=== PATIENT | female | born 1980 | race Caucasian/White ===

== ENCOUNTER 2019-10-13 23:09 | Emergency (ER) | payer OTHER ==
[~2019-10-13] VITALS: Ht 177.8 cm; Wt 117.9 kg
[2019-10-13] MEDS ORDERED: ONDANSETRON HCL/PF 4 MG/2 ML VIAL ONE (23:44)
[2019-10-13 23:59] LABS: BASOPHILS # (AUTO) 0.1 /CMM (0.0-0.2); BASOPHILS % (AUTO) 1.2 % (0.0-2.0); EOSINOPHILS % (AUTO) 2.2 % (0.0-6.0); HEMATOCRIT 38 % (33-45); HEMOGLOBIN 12.7 g/dL (11.5-14.8); LYMPHOCYTES % (AUTO) 22.9 % (20.0-44.0); MEAN CORPUSCULAR HGB CONC 33 g/dl (31.0-36.0); MEAN CORPUSCULAR VOLUME 92 fL (82-100); MONOCYTES # (AUTO) 0.5 /CMM (0.1-1.30); MONOCYTES % (AUTO) 11.5 % (2.0-12.0); NEUTROPHILS # (AUTO) 2.7 /CMM (1.8-8.9); NEUTROPHILS % (AUTO) 62.2 % (43.0-81.0); PLATELET COUNT (AUTO) 73 /CMM (150-450); RED BLOOD CELL COUNT(AUTO) 4.14 MIL/uL (4.0-5.2); WHITE BLOOD COUNT (AUTO) 4.4 K/uL (4.3-11.0)
[2019-10-14] MEDS ORDERED: ONDANSETRON HCL/PF 4 MG/2 ML VIAL IVP ONE
--- NOTE | 2019-10-14 00:01 | NUR ---
CXR IN PROGRESS AT THE BEDSIDE.
[2019-10-14 00:11] LABS: CALCIUM, SERUM 8.4 mg/dL (8.5-10.1); CARBON DIOXIDE 19 mmol/L (21-32); CHLORIDE 108 mmol/L (98-107); CREATININE 0.9 mg/dL (0.6-1.3); GLUCOSE 102 mg/dL (74-106); POTASSIUM 3.6 mmol/L (3.5-5.1); SODIUM SERUM 139 mmol/L (136-145); UREA NITROGEN, BLOOD 16 mg/dL (7-18)
[2019-10-14 00:23] LABS: B-TYPE NATRIURETIC PEPTIDE 26 PG/ML (0-125)
[2019-10-14] MEDS ORDERED: NITROGLYCERIN 0.4 MG/TAB BOTTLE ONE (00:47)
[2019-10-14] MEDS ORDERED: ACETAMINOPHEN 325 MG TABLET ONE (00:47)
[2019-10-14 00:58] LABS: EOSINOPHILS % (MANUAL) 3 % (0-4); LYMPHOCYTES % (MANUAL) 17 % (16-48); MONOCYTES % (MANUAL) 7 % (0-11.0); NEUTROPHILS % (MANUAL) 73 (42-76)
[2019-10-14] MEDS ORDERED: NITROGLYCERIN 0.4 MG/TAB BOTTLE SL ONE (01:00)
[2019-10-14] MEDS ORDERED: ACETAMINOPHEN 325 MG TABLET PO ONE (01:00)
[2019-10-14] MEDS ORDERED: ONDANSETRON HCL/PF 4 MG/2 ML VIAL ONE (01:09)
[2019-10-14] MEDS ORDERED: HYDROCODONE/APAP 5/325MG 1 EACH TABLET ONE (01:10)
[2019-10-14 01:22] LABS: APPEARANCE,URINE Clear (CLEAR); BILIRUBIN,URINE Negative (NEGATIVE); BLOOD, URINE Moderate Ery/uL (NEGATIVE); COLOR,URINE Yellow (YELLOW); KETONES,URINE Negative (NEGATIVE); LEUKOCYTE ESTERASE ,URINE Negative (NEGATIVE); NITRITE, URINE Negative (NEGATIVE); PROTEIN,URINE Negative (NEGATIVE); UGLUCOSE Negative (NEGATIVE); UROBILINOGEN,URINE 0.2 EU/dL (0.2)
[2019-10-14] MEDS ORDERED: HYDROCODONE/APAP 5/325MG 1 EACH TABLET PO ONE (01:30)
[2019-10-14] MEDS ORDERED: ONDANSETRON HCL/PF 4 MG/2 ML VIAL IV ONE (01:30)
[2019-10-14] MEDS ORDERED: ONDANSETRON 4 MG TAB.RAPDIS SL ONE (01:30)
--- NOTE | 2019-10-14 01:31 | NUR ---
IV removed. Catheter intact and site benign. Pressure and 4x4 applied to site. No bleeding noted. Patient discharged to home in stable condition. Written and verbal after care instructions given. Patient verbalizes understanding of instruction. PT AMBULATED OUT WITH A STEADY GAIT. PT REC'D A CUP OF ICE CHIPS FOR THE UBER RIDE HOME. PT IS TAKING UBER HOME. VSS.
[2019-10-14 01:32] VITALS: BP 145/77
[2019-10-14 03:35] LABS: BACTERIA,URINE Few /HPF (None Seen); RBC,URINE 0-2 /HPF (0-2); SQUAMOUS EPITHELIAL CELL,UR Few /HPF (None Seen)
== END 2019-10-14 01:33 | disposition home or self-care (01) ==
LOC: ER 23:18
DX: R07.89 Other chest pain (principal); I25.2 Old myocardial infarction; I50.9 Heart failure, unspecified; F17.200 Nicotine dependence, unspecified, uncomplicated; Z86.19 Personal history of other infectious and parasitic diseases; Z88.6 Allergy status to analgesic agent; Z91.040 Latex allergy status; Z88.8 Allergy status to other drugs, medicaments and biological substances
CPT/HCPCS: 36415; 71045; 80048; 81001; 83880; 84484; 84703; 85025; 85730; 93005; 96374; 96376; 99284; J2405 ×2; 81000-TC

== ENCOUNTER 2020-01-02 03:12 | Emergency (ER) | payer OTHER ==
[~2020-01-02] VITALS: Ht 165.1 cm; Wt 99.8 kg
[2020-01-02] MEDS ORDERED: MORPHINE SULFATE INJ 2 MG/ML DISP.SYRIN IV ONE ×2 (04:00→07:00)
[2020-01-02] MEDS ORDERED: ONDANSETRON HCL/PF 4 MG/2 ML VIAL IVP ONE (04:00)
[2020-01-02] MEDS ORDERED: MORPHINE SULFATE INJ 4 MG/ML DISP.SYRIN ONE ×2 (04:06→06:45)
[2020-01-02] MEDS ORDERED: ONDANSETRON HCL/PF 4 MG/2 ML VIAL ONE (04:06)
--- NOTE | 2020-01-02 04:13 | NUR ---
PATIENT CAME TO ER BED 6 C/O LEFT LOWER BACK PAIN. PATIENT STATES THAT SHE LIFTED A HEAVY OBJECT OF ABOUT 110LBS AND IT FELL ON HER. PATIENT STATES THAT SHE HAS LOWER BACK PAIN, LOSS OF BLADDER CONTROL, AND NAUSEA. PATIENT STATES THAT THIS HAD OCCURRED AROUND 0130 OF TODAY. AAOX4. NO SOB. BREATHING EVENLY AND UNLABORED. CONNECTED TO MONITOR.
--- NOTE | 2020-01-02 04:16 | NUR ---
BLOOD DRAWN AND SENT TO LAB.
--- NOTE | 2020-01-02 04:41 | NUR ---
URINE COLLECTED AND SENT TO LAB
[2020-01-02 04:42] LABS: CALCIUM, SERUM 8.3 mg/dL (8.5-10.1); CREATININE 0.8 mg/dL (0.6-1.3)
[2020-01-02 04:43] LABS: APPEARANCE,URINE Clear (CLEAR); BILIRUBIN,URINE Negative (NEGATIVE); BLOOD, URINE Trace-intact Ery/uL (NEGATIVE); COLOR,URINE Yellow (YELLOW); KETONES,URINE Negative (NEGATIVE); LEUKOCYTE ESTERASE ,URINE Negative (NEGATIVE); NITRITE, URINE Negative (NEGATIVE); PH,URINE 6.5 (5.0-8.0); PROTEIN,URINE Negative (NEGATIVE); UGLUCOSE Negative (NEGATIVE); UROBILINOGEN,URINE 0.2 EU/dL (0.2)
[2020-01-02 05:01] LABS: ALBUMIN 3.2 g/dL (3.4-5.0); BILIRUBIN,DIRECT 0.3 mg/dL (0.0-0.2); TOTAL PROTEIN, SERUM 7.9 g/dL (6.4-8.2)
[2020-01-02 05:15] LABS: HEMATOCRIT 36 % (33-45); RED BLOOD CELL COUNT(AUTO) 4.18 MIL/uL (4.0-5.2); WHITE BLOOD COUNT (AUTO) 4.3 K/uL (4.3-11.0)
[2020-01-02 05:16] LABS: BASOPHILS # (AUTO) 0.1 /CMM (0.0-0.2); BASOPHILS % (AUTO) 1.2 % (0.0-2.0); EOSINOPHILS % (AUTO) 5.2 % (0.0-6.0); LYMPHOCYTES # (AUTO) 0.9 /CMM (0.8-4.8); LYMPHOCYTES % (AUTO) 22.1 % (20.0-44.0); MEAN CORPUSCULAR HGB CONC 33 g/dl (31.0-36.0); MEAN CORPUSCULAR VOLUME 87 fL (82-100); MONOCYTES # (AUTO) 0.3 /CMM (0.1-1.30); MONOCYTES % (AUTO) 7.1 % (2.0-12.0); NEUTROPHILS # (AUTO) 2.7 /CMM (1.8-8.9); NEUTROPHILS % (AUTO) 64.4 % (43.0-81.0); PLATELET COUNT (AUTO) 84 /CMM (150-450)
[2020-01-02 05:26] LABS: BACTERIA,URINE None seen /HPF (None Seen); RBC,URINE 0-2 /HPF (0-2); SQUAMOUS EPITHELIAL CELL,UR Few /HPF (None Seen); WBC,URINE 0-2 /HPF (0-3)
[2020-01-02] MEDS ORDERED: HALOPERIDOL LACTATE INJ 5 MG/ML VIAL ONE (05:50)
[2020-01-02] MEDS ORDERED: HALOPERIDOL LACTATE INJ 5 MG/ML VIAL IM ONE (06:00)
[2020-01-02 06:01] LABS: EOSINOPHILS % (MANUAL) 6 % (0-4); LYMPHOCYTES % (MANUAL) 23 % (16-48); MONOCYTES % (MANUAL) 8 % (0-11.0); NEUTROPHILS % (MANUAL) 63 (42-76)
--- NOTE | 2020-01-02 06:56 | NUR ---
IV removed. Catheter intact and site benign. Pressure and 4x4 applied to site. No bleeding noted.
--- NOTE | 2020-01-02 06:58 | NUR ---
Patient is ambulatory with a steady gait.
--- NOTE | 2020-01-02 06:58 | NUR ---
Patient discharged to home in stable condition. Written and verbal after care instructions given. Patient verbalizes understanding of instruction.
[2020-01-02 06:59] VITALS: BP 122/71
--- NOTE | 2020-01-02 06:59 | NUR ---
Patient called Micaela to drive her home.
== END 2020-01-02 06:59 | disposition home or self-care (01) ==
LOC: ER 03:15
DX: M54.5 Low back pain (principal); G89.29 Other chronic pain; I25.2 Old myocardial infarction; I50.9 Heart failure, unspecified; Z86.19 Personal history of other infectious and parasitic diseases; Z88.8 Allergy status to other drugs, medicaments and biological substances; Z91.040 Latex allergy status
CPT/HCPCS: 36415; 72131; 80048; 80076; 81001; 84703; 85025; 86140; 96372; 96374; 96375; 96376; 99284; J1630; J2270 ×2; J2405; 81000-TC

== ENCOUNTER 2020-01-20 01:01 | Emergency (ER) | payer OTHER ==
[~2020-01-20] VITALS: Ht 180.3 cm; Wt 95.7 kg
[2020-01-20 02:21] VITALS: BP 138/78
[2020-01-20] MEDS ORDERED: MORPHINE SULFATE INJ 2 MG/ML DISP.SYRIN ONE (02:52)
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
[2020-01-20] MEDS ORDERED: MORPHINE SULFATE INJ 2 MG/ML DISP.SYRIN IM ONE (03:00)
--- NOTE | 2020-01-20 03:22 | NUR ---
Patient discharged to home in stable condition. Written and verbal after care instructions given. Patient verbalizes understanding of instruction.
== END 2020-01-20 03:23 | disposition home or self-care (01) ==
LOC: ER 01:01
DX: S90.31XA Contusion of right foot, initial encounter (principal); S60.212A Contusion of left wrist, initial encounter; G89.29 Other chronic pain; I25.2 Old myocardial infarction; I50.9 Heart failure, unspecified; F17.200 Nicotine dependence, unspecified, uncomplicated; Z88.6 Allergy status to analgesic agent; Z88.8 Allergy status to other drugs, medicaments and biological substances; Z91.040 Latex allergy status; Y08.89XA Assault by other specified means, initial encounter; Y93.89 Activity, other specified; Y92.89 Other specified places as the place of occurrence of the external cause; Y99.8 Other external cause status
CPT/HCPCS: 96372; 99283; J2270

== ENCOUNTER 2020-03-09 15:16 | Emergency (ER) | payer OTHER ==
[~2020-03-09] VITALS: Ht 177.8 cm; Wt 104.3 kg
--- NOTE | 2020-03-09 16:37 | NUR ---
BIBS TO ER BED 3. AAOX4. NOT IN RESP DISTRESS, BREATHING EVEN AND UNLABORED. AMBULATORY. CAME IN FOR NECK PAIN AND SWELLING. PT REORTS PAIN STARTED LAST NIGHT. PAIN IS DESCRIBE TIGHTNESS. PT REPORTS PAIN AT THE BACK OF THE HEAD. WHEN LYING DOWN AND DIFFICULTY TO BREATH. PT ALSO COMPLAINTS THAT HER FACE IS SWOLEN THAN USUAL.MD WAS AT BEDSIDE FOR EVAL. ORDERS RECEIVED NOTED AND CARRIED OUT.
[2020-03-09] MEDS ORDERED: DEXAMETHASONE SOLN 5 MG/5 ML UDC ONE (16:57)
[2020-03-09 17:06] LABS: BASOPHILS % (AUTO) 1.1 % (0.0-2.0); EOSINOPHILS % (AUTO) 3.9 % (0.0-6.0); HEMATOCRIT 38 % (33-45); HEMOGLOBIN 12.5 g/dL (11.5-14.8); LYMPHOCYTES # (AUTO) 1.1 /CMM (0.8-4.8); LYMPHOCYTES % (AUTO) 27.1 % (20.0-44.0); MEAN CORPUSCULAR HGB CONC 33 g/dl (31.0-36.0); MEAN CORPUSCULAR VOLUME 88 fL (82-100); MONOCYTES # (AUTO) 0.3 /CMM (0.1-1.30); MONOCYTES % (AUTO) 7.4 % (2.0-12.0); NEUTROPHILS # (AUTO) 2.5 /CMM (1.8-8.9); NEUTROPHILS % (AUTO) 60.5 % (43.0-81.0); PLATELET COUNT (AUTO) 66 /CMM (150-450); WHITE BLOOD COUNT (AUTO) 4.1 K/uL (4.3-11.0)
[2020-03-09 17:09] LABS: CALCIUM, SERUM 8.3 mg/dL (8.5-10.1); POTASSIUM 4.1 mmol/L (3.5-5.1)
[2020-03-09] MEDS: DEXAMETHASONE SOLN 5 MG/5 ML UDC PO ONE (17:24)
[2020-03-09 18:11] LABS: THYROID STIMULATING HORMONE 165.373 uIU/mL (0.358-3.74)
[2020-03-09 18:20] LABS: BAND % (MANUAL) 2 % (0.0-5.0); EOSINOPHILS % (MANUAL) 2 % (0-4); LYMPHOCYTES % (MANUAL) 25 % (16-48); MONOCYTES % (MANUAL) 4 % (0-11.0); NEUTROPHILS % (MANUAL) 67 (42-76)
--- NOTE | 2020-03-09 18:35 | NUR ---
US AT BEDSIDE
--- NOTE | 2020-03-09 19:31 | NUR ---
Patient discharged to home in stable condition. Written and verbal after care instructions given. Patient verbalizes understanding of instruction. Pt ambulatory with a steady gait
[2020-03-09 19:32] VITALS: BP 130/78
[2020-03-11 08:08] LABS: T3, FREE 0.9 pg/mL (2.0-4.4)
== END 2020-03-09 19:33 | disposition home or self-care (01) ==
LOC: ER 15:19
DX: E01.0 Iodine-deficiency related diffuse (endemic) goiter (principal); I25.2 Old myocardial infarction; I50.9 Heart failure, unspecified; I42.9 Cardiomyopathy, unspecified; Z86.19 Personal history of other infectious and parasitic diseases; Z88.6 Allergy status to analgesic agent; Z91.040 Latex allergy status; Z88.8 Allergy status to other drugs, medicaments and biological substances; Z88.9 Allergy status to unspecified drugs, medicaments and biological substances
CPT/HCPCS: 36415; 70490; 76536; 80048; 84439; 84443; 84481; 85025; 86376; 99285; J8540

== ENCOUNTER 2020-03-18 03:39 | Emergency (ER) | payer OTHER ==
[~2020-03-18] VITALS: Ht 177.8 cm; Wt 104.3 kg
[2020-03-18] MEDS ORDERED: IV NS 0.9% 1,000 ML BAG IV ONE (04:00)
--- NOTE | 2020-03-18 04:00 | NUR ---
PT CAME IN FOR POSSIBLE REACTION TO SYNTHROID, SYNCOPAL EPISODE, SWELLING ON LT LEG +REDNESS +RASH. PT AAOX4, VSS, RESPIRATIONS EVEN AND UNLABORED ON RA W/ NAD NOTED. PT CONNECTED TO THE PEDIATRIC PSYCHIATRIST AND POX
--- NOTE | 2020-03-18 04:18 | NUR ---
EKG AT BEDSIDE
[2020-03-18 04:23] LABS: BASOPHILS # (AUTO) 0.1 /CMM (0.0-0.2); BASOPHILS % (AUTO) 1.4 % (0.0-2.0); EOSINOPHILS % (AUTO) 3.7 % (0.0-6.0); HEMATOCRIT 32 % (33-45); HEMOGLOBIN 10.8 g/dL (11.5-14.8); LYMPHOCYTES # (AUTO) 1.1 /CMM (0.8-4.8); LYMPHOCYTES % (AUTO) 25.1 % (20.0-44.0); MEAN CORPUSCULAR HGB CONC 34 g/dl (31.0-36.0); MEAN CORPUSCULAR VOLUME 89 fL (82-100); MONOCYTES # (AUTO) 0.5 /CMM (0.1-1.30); MONOCYTES % (AUTO) 12.5 % (2.0-12.0); NEUTROPHILS # (AUTO) 2.5 /CMM (1.8-8.9); NEUTROPHILS % (AUTO) 57.3 % (43.0-81.0); PLATELET COUNT (AUTO) 71 /CMM (150-450); RED BLOOD CELL COUNT(AUTO) 3.63 MIL/uL (4.0-5.2); WHITE BLOOD COUNT (AUTO) 4.4 K/uL (4.3-11.0)
[2020-03-18 04:25] LABS: CALCIUM, SERUM 9.7 mg/dL (8.5-10.1); CREATININE 0.9 mg/dL (0.6-1.3); POTASSIUM 3.7 mmol/L (3.5-5.1)
[2020-03-18 04:54] LABS: EOSINOPHILS % (MANUAL) 1 % (0-4); LYMPHOCYTES % (MANUAL) 21 % (16-48); MONOCYTES % (MANUAL) 8 % (0-11.0); NEUTROPHILS % (MANUAL) 70 (42-76)
--- NOTE | 2020-03-18 04:57 | NUR ---
ULTRASOUND AT BEDSIDE IN PROGRESS
[2020-03-18] MEDS ORDERED: MORPHINE SULFATE INJ 4 MG/ML DISP.SYRIN ONE (05:49)
[2020-03-18] MEDS ORDERED: MORPHINE SULFATE INJ 2 MG/ML DISP.SYRIN IV ONE ×2 (06:00)
[2020-03-18 06:21] VITALS: BP 124/78
--- NOTE | 2020-03-18 06:21 | NUR ---
Patient discharged to home in stable condition. Written and verbal after care instructions given. Patient verbalizes understanding of instruction.IV removed. Catheter intact and site benign. Pressure and 4x4 applied to site. No bleeding noted.
== END 2020-03-18 06:29 | disposition home or self-care (01) ==
LOC: ER 03:43
DX: R55 Syncope and collapse (principal); F17.210 Nicotine dependence, cigarettes, uncomplicated; R22.42 Localized swelling, mass and lump, left lower limb; I25.2 Old myocardial infarction; I50.9 Heart failure, unspecified; E03.9 Hypothyroidism, unspecified; Z88.6 Allergy status to analgesic agent; Z91.040 Latex allergy status; Z88.8 Allergy status to other drugs, medicaments and biological substances
CPT/HCPCS: 36415; 71045; 80048; 84484; 84703; 85025; 93005; 93971; 96361; 96374; 99285; 99406; J2270; J7030

== ENCOUNTER 2020-03-23 15:12 | Inpatient (IN) | payer OTHER ==
[~2020-03-23] VITALS: Ht 177.8 cm; Wt 145.1 kg
--- NOTE | 2020-03-23 16:32 | NUR ---
PT BIB RA WITH A C/O LLE REDNESS, EDEMA, & PAIN. PT IS AA&O X4. PT HAS MULT BRUISES ON BUE. PT WAS PLACED ON THE MONITOR AND CONTINUOUS PULSE OX. WILL CONTINUE TO MONITOR THE PT.
[2020-03-23] MEDS ORDERED: MORPHINE SULFATE INJ 2 MG/ML DISP.SYRIN IV ONE ×3 (17:30→21:00)
[2020-03-23] MEDS ORDERED: ONDANSETRON HCL/PF 4 MG/2 ML VIAL IVP ONE (17:30)
[2020-03-23] MEDS ORDERED: ONDANSETRON HCL/PF 4 MG/2 ML VIAL ONE (17:36)
[2020-03-23] MEDS ORDERED: MORPHINE SULFATE INJ 4 MG/ML DISP.SYRIN ONE ×3 (17:37→21:20)
--- NOTE | 2020-03-23 17:40 | NUR ---
US TECH IS AT THE BEDSIDE FOR DUPLEX.
--- NOTE | 2020-03-23 17:50 | NUR ---
IV STARTED AND BLOOD WAS DRAWN.
[2020-03-23 18:11] LABS: CALCIUM, SERUM 8.6 mg/dL (8.5-10.1); CREATININE 1.2 mg/dL (0.6-1.3); POTASSIUM 3.5 mmol/L (3.5-5.1)
[2020-03-23 18:21] LABS: BASOPHILS % (AUTO) 1.1 % (0.0-2.0); EOSINOPHILS % (AUTO) 1.8 % (0.0-6.0); HEMATOCRIT 30 % (33-45); HEMOGLOBIN 9.9 g/dL (11.5-14.8); LYMPHOCYTES # (AUTO) 0.7 /CMM (0.8-4.8); LYMPHOCYTES % (AUTO) 22.9 % (20.0-44.0); MEAN CORPUSCULAR HGB CONC 33 g/dl (31.0-36.0); MEAN CORPUSCULAR VOLUME 89 fL (82-100); MONOCYTES # (AUTO) 0.5 /CMM (0.1-1.30); MONOCYTES % (AUTO) 18.2 % (2.0-12.0); NEUTROPHILS # (AUTO) 1.7 /CMM (1.8-8.9); RED BLOOD CELL COUNT(AUTO) 3.36 MIL/uL (4.0-5.2)
[2020-03-23 18:25] LABS: PLATELET COUNT (AUTO) 48 /CMM (150-450)
[2020-03-23 18:28] LABS: ALBUMIN 3.4 g/dL (3.4-5.0); BILIRUBIN,TOTAL 1.4 mg/dL (0.2-1.0); TOTAL PROTEIN, SERUM 7.3 g/dL (6.4-8.2)
--- NOTE | 2020-03-23 18:30 | NUR ---
PT AMBULATED TO THE BATHROOM WITH A STEADY GAIT. PT IS STILL C/O PAIN. PT STATED THAT THE MEDICATION WAS NOT EFFECTIVE. TOO EARLY TO ASSESS. WILL RE-ASSESS PAIN SHORTLY.
--- NOTE | 2020-03-23 18:50 | NUR ---
PT STATED THAT THE PAIN MEDICATION WAS NOT EFFECTIVE. MD IS AWARE AND NEW ORDERS WERE GIVEN.
[2020-03-23] MEDS ORDERED: LEVO150T8 PO (18:55)
[2020-03-23] MEDS ORDERED: OXYC-454 PO (18:55)
[2020-03-23] MEDS ORDERED: AMOX1TAB15 PO (18:55)
[2020-03-23] MEDS ORDERED: FURO-145 PO (18:55)
[2020-03-23] MEDS ORDERED: CHOL100040 PO (18:56)
[2020-03-23] MEDS ORDERED: ASCO-352 PO (18:56)
--- NOTE | 2020-03-23 19:15 | NUR ---
PT APPEARS TO BE RESTING COMFORTABLY. PT IS ON THE PHONE WITH FAMILY.
[2020-03-23 19:25] LABS: APPEARANCE,URINE Clear (CLEAR); BILIRUBIN,URINE Negative (NEGATIVE); BLOOD, URINE Trace-lysed Ery/uL (NEGATIVE); COLOR,URINE Yellow (YELLOW); KETONES,URINE Negative (NEGATIVE); LEUKOCYTE ESTERASE ,URINE Negative (NEGATIVE); NITRITE, URINE Negative (NEGATIVE); PH,URINE 5.5 (5.0-8.0); PROTEIN,URINE Negative (NEGATIVE); UGLUCOSE Negative (NEGATIVE); UROBILINOGEN,URINE 0.2 EU/dL (0.2)
[2020-03-23 19:29] LABS: BACTERIA,URINE Few /HPF (None Seen); SQUAMOUS EPITHELIAL CELL,UR Few /HPF (None Seen); WBC,URINE NONE SEEN /HPF (0-3)
[2020-03-23 19:42] LABS: LYMPHOCYTES % (MANUAL) 22 % (16-48); MONOCYTES % (MANUAL) 17 % (0-11.0); NEUTROPHILS % (MANUAL) 61 (42-76)
--- NOTE | 2020-03-23 20:08 | NUR ---
Panel paged per Ravin SANABRIA
--- NOTE | 2020-03-23 20:25 | NUR ---
IS TALKING TO DR GODINEZ RE: PT ADMISSION.
--- NOTE | 2020-03-23 20:25 | NUR ---
CALL BACK IN 5 MINS FOR REPORT.
--- NOTE | 2020-03-23 20:44 | NUR ---
REPORT GIVEN TO ADARSH GOODWIN
[2020-03-23 22:00] VITALS: BP 136/87
[2020-03-23] MEDS ORDERED: VANCOMYCIN 1 GM in IV NS 0.9% 250 ML IV SCH (22:30)
--- NOTE | 2020-03-23 22:30 | NUR ---
MS RN RECEIVE PT VIA MICHEL FROM [facility] ADMIT TO MED SURG FLOOR PT A/OX 3 IN STABLE CONDITION, HEAD TO TOE ASSESSMENT IS DONE, PT NOTED BRUISES/DISCOLORATION IN HER BODY. PT C/O PAIN IN HER LEFT LOWER LEG, WILL CONT TO MONITOR
[2020-03-23] MEDS ORDERED: VANCOMYCIN 2 GM in IV NS 0.9% 500 ML IV ONE (23:00)
[2020-03-23] MEDS ORDERED: VANCOMYCIN 1 GM VIAL ONE ×2 (23:27→23:31)
[2020-03-23] MEDS: FUROSEMIDE 20 MG TABLET PO SCH (23:40)
--- NOTE | 2020-03-23 23:40 | NUR ---
WAYNE Patton DESK [employer]ERKS SUPERVISOR PATIENT WANTED BENADRYL FOR ITCH GEN BODY OBTAIN ORDERS OF BENADRYL 25 MG PO Q8HR PRN, FF UP PAIN REQUEST TO HAVE NORCO FOR HER BREAKTHROUGH PAIN PER DR. GODINEZ ITS EITHER NORCO OR MORPHINE NOT BOTH. READ BACK AND VERIFIED ORDERS NOTED AND CARRIED OUT
[2020-03-23] MEDS: MORPHINE SULFATE INJ 2 MG/ML DISP.SYRIN IV PRN (23:41)
[2020-03-24] MEDS: diphenhydrAMINE HCL 25 MG CAPSULE PO PRN ×2 (00:07→21:06)
[2020-03-24] MEDS: MORPHINE SULFATE INJ 2 MG/ML DISP.SYRIN IV PRN ×2 (03:42→08:08)
--- NOTE | 2020-03-24 05:33 | NUR ---
MS RN SLEPT WELL, MONITORED FOR PAIN, AFEBRILE. NO S/S OF DISTRESS. ALL NEEDS ATTENDED AND ANTICIPATED, KEPT CLEAN, DRY AND COMFORTABLE.SAFETY MEASURES AT ALL TIMES. WILL ENDORSE TO NEXT SHIFT.
[2020-03-24] MEDS ORDERED: FEE PK DOSING 1 MIN EA MC ONE (07:20)
[2020-03-24] MEDS ORDERED: LEVOTHYROXINE SODIUM 150 MCG TABLET PO SCH (07:30)
--- NOTE | 2020-03-24 07:30 | NUR ---
RN OPENING NOTES RECEIVED PATIENT RESTING IN BED. A/OX4. NOT IN ANY FORM OF DISTRESS. NO SOB. IV ACCESS INTACT AND PATENT. KEPT PATIENT SAFE AND COMFORTABLE. BED IN LOW/LOCKED POSITION. SIDERAILS UPX2, CALL LIGHT IN REACH. WILL CONT TO MONIOTR ACCORDINGLY
[2020-03-24 08:00] VITALS: BP 108/60
[2020-03-24] MEDS: LEVOTHYROXINE SODIUM 75 MCG TABLET PO SCH (08:12)
[2020-03-24] MEDS: FUROSEMIDE 20 MG TABLET PO SCH (08:12)
[2020-03-24] MEDS: CHOLECALCIFEROL 1,000 UNIT TABLET (VIT D3) PO SCH (08:12)
[2020-03-24] MEDS: ASCORBIC ACID 500 MG TABLET PO SCH (08:12)
[2020-03-24] MEDS: HYDROMORPHONE INJ 2 MG/ML DISP.SYRIN IV PRN ×3 (12:19→20:48)
[2020-03-24] MEDS: PANTOPRAZOLE 40 MG VIAL IV SCH (12:20)
[2020-03-24] MEDS: VANCOMYCIN 1.25 GM in IV D5W 250 ML IV SCH ×2 (12:20→23:07)
[2020-03-24 14:57] LABS: ALBUMIN 3.3 g/dL (3.4-5.0); BILIRUBIN,DIRECT 0.3 mg/dL (0.0-0.2); BILIRUBIN,TOTAL 1.2 mg/dL (0.2-1.0); TOTAL PROTEIN, SERUM 7.6 g/dL (6.4-8.2)
[2020-03-24 16:00] VITALS: BP 131/82
--- NOTE | 2020-03-24 19:30 | NUR ---
MS RN RECEIVE PT IN BED AWAKE AND NOT IN DISTRESS, NO COMPLAIN OF PAIN, SAFETY MEASURES AT ALL TIMES. WILL CONT TO MONITOR
--- NOTE | 2020-03-24 19:37 | NUR ---
RN CLOSING NOTES PATIENT IN STABLE CONDITION. ALL NEEDS ATTENDED AND PROVIDED. ALL DUE MEDS GIVEN ORDERED. ASSISTED PATIENT WITH ADLS. KEPT PATIENT SAFE AND COMFORTABLE. BED IN LOW/LOCKED POSITION. SIDERAILS UPX2, CALL LIGHT IN REACH. ENDORSED TO NIGHT RN FOR MARTY.
[2020-03-24 20:00] VITALS: BP 102/73
[2020-03-25] MEDS: HYDROMORPHONE INJ 2 MG/ML DISP.SYRIN IV PRN ×6 (00:49→23:19)
--- NOTE | 2020-03-25 05:28 | NUR ---
MS RN PT MONITORED FOR PAIN AND ACCORDINGLY, NEEDS ATTENDED AND ANTICIPATED, NO S/S OF DISTRESS, KEPT CLEAN, DRY AND COMFORTABLE. SAFETY MEASURES AT ALL TIMES. WILL ENDORSE TO NEXT SHIFT.
[2020-03-25 07:04] LABS: EOSINOPHILS % (AUTO) 2.2 % (0.0-6.0); HEMATOCRIT 32 % (33-45); HEMOGLOBIN 10.5 g/dL (11.5-14.8); LYMPHOCYTES # (AUTO) 0.6 /CMM (0.8-4.8); LYMPHOCYTES % (AUTO) 20.6 % (20.0-44.0); MEAN CORPUSCULAR HGB CONC 33 g/dl (31.0-36.0); MEAN CORPUSCULAR VOLUME 89 fL (82-100); MONOCYTES # (AUTO) 0.6 /CMM (0.1-1.30); MONOCYTES % (AUTO) 19.4 % (2.0-12.0); NEUTROPHILS # (AUTO) 1.6 /CMM (1.8-8.9); NEUTROPHILS % (AUTO) 56.8 % (43.0-81.0); PLATELET COUNT (AUTO) 52 /CMM (150-450); RED BLOOD CELL COUNT(AUTO) 3.54 MIL/uL (4.0-5.2); WHITE BLOOD COUNT (AUTO) 2.8 K/uL (4.3-11.0)
[2020-03-25 07:28] LABS: ALBUMIN 3.5 g/dL (3.4-5.0); BAND % (MANUAL) 3 % (0.0-5.0); BILIRUBIN,DIRECT 0.4 mg/dL (0.0-0.2); BILIRUBIN,TOTAL 1.6 mg/dL (0.2-1.0); CALCIUM, SERUM 8.3 mg/dL (8.5-10.1); CREATININE 0.9 mg/dL (0.6-1.3); LYMPHOCYTES % (MANUAL) 19 % (16-48); MONOCYTES % (MANUAL) 16 % (0-11.0); NEUTROPHILS % (MANUAL) 62 (42-76); POTASSIUM 3.8 mmol/L (3.5-5.1)
[2020-03-25 07:29] LABS: C-REACTIVE PROTEIN 0.9 mg/dL (0.0-0.9); THYROID STIMULATING HORMONE 3.7 uIU/mL (0.358-3.74)
[2020-03-25 08:00] VITALS: BP 131/107
--- NOTE | 2020-03-25 08:00 | NUR ---
RN NOTES RECEIVED PATIENT IN THE ROOM A/O X3, ROOM AIR, NO ACUTE RESPIRATORY DISTRESS, V/S STABLE, PATIENT TOLERATED BREAKFAST WELL, ADMINISTERED SCHEDULED MEDICATION, EDEMA ON LEFT LEG, REDNESS, ENCOURAGED TO KEEP ELEVATED USING PILLOWS, WAS COMPLAINING OD PAIN 8/10 PER PAIN SCALE. CALL LIGHT WITHIN TO REACH, CONTINUED MONITORING.
[2020-03-25 08:19] VITALS: BP 131/107
[2020-03-25 08:26] VITALS: BP 131/104
[2020-03-25] MEDS: FOLIC ACID 1 MG TABLET PO SCH (09:05)
[2020-03-25] MEDS: CHOLECALCIFEROL 1,000 UNIT TABLET (VIT D3) PO SCH (09:06)
[2020-03-25] MEDS: ASCORBIC ACID 500 MG TABLET PO SCH (09:06)
[2020-03-25] MEDS: LEVOTHYROXINE SODIUM 75 MCG TABLET PO SCH (09:06)
[2020-03-25] MEDS: FUROSEMIDE 20 MG TABLET PO SCH (09:06)
[2020-03-25] MEDS: PANTOPRAZOLE 40 MG VIAL IV SCH (09:06)
--- NOTE | 2020-03-25 09:12 | NUR ---
rn notes administered Dilaudid 2 mg/ml iv push for left leg pain 05/07 per patient request v/s taken bp 131/107, p-91, r-20. continued monitoring.
--- NOTE | 2020-03-25 14:45 | NUR ---
RN NOTES ADMINISTERED DILAUDID 2 MG/ML IV PUSH FOR LEFT FOOT PAIN 04/06 PER PATIENT REQUEST, V/S TAKEN BP-120/58, P-81, R-20, CONTINUED MONITORING.
[2020-03-25 16:50] VITALS: BP 113/64
[2020-03-25] MEDS: DOCUSATE SODIUM 100 MG CAPSULE PO SCH (17:24)
[2020-03-25] MEDS: MAGNESIUM HYDROXIDE 30 ML UDC PO PRN (18:10)
--- NOTE | 2020-03-25 18:10 | NUR ---
RN NOTES ADMINISTERED MILK OF MAGNESIA 30 ML PO PRN FOR CONSTIPATION, PATIENT STABLE, MEDICATION WERE ADMINISTERED FOR PAIN EFFECTIVE. EDUCATED PATIENT FOR OCCULT BLOOD STOOL SAMPLE. CALL LIGHT WITHIN TO REACH. ENDORSED ONCOMING NURSE FOLLOW PLAN OF CARE.
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
--- NOTE | 2020-03-25 19:14 | NUR ---
RN NOTES ADMINISTERED DILAUDID 2 MG/ML IV PUSH PER PATIENT REQUEST, PATIENT STABLE NO ACUTE RESPIRATORY DISTRESS, V/S WNL. ENDORSED ONCOMING NURSE FOLLOW PLAN OF CARE.
--- NOTE | 2020-03-25 20:15 | NUR ---
RECEIVED AWAKE AND ORIENTATED X4 SPEECH CLEAR LEFT LEG ELEVATED ON A PILLOW DEEP PINK IN COLOR
[2020-03-25 21:26] VITALS: BP 137/83
[2020-03-25 22:45] LABS: OCCULT BLOOD STOOL POSITIVE (NEGATIVE)
[2020-03-25] MEDS: VANCOMYCIN 1.5 GM in IV D5W 500ml IV SCH (23:20)
[2020-03-25] MEDS: diphenhydrAMINE HCL 25 MG CAPSULE PO PRN (23:29)
[2020-03-26] MEDS: HYDROMORPHONE INJ 2 MG/ML DISP.SYRIN IV PRN ×5 (04:21→23:04)
--- NOTE | 2020-03-26 04:54 | NUR ---
ENDING NOTES: ENJOYS TALKING ABOUT HER SON. SPEAKS OF GOING HOME. LEFT LEG DEEP PINK IN COLOR AND TENDER TO TOUCH. MEDICATED X3 THIS 12 HOUR SHIFT FOR LEFT LEG PAIN. NOTED MULTIPLE BODY BRUISING MD AWARE PLTS AT 53. AMBULATES TO THE BATHROOM STEADY ON HIS LEGS
[2020-03-26 07:36] LABS: CALCIUM, SERUM 7.5 mg/dL (8.5-10.1); CREATININE 0.9 mg/dL (0.6-1.3)
[2020-03-26 08:00] VITALS: BP 126/72
[2020-03-26] MEDS: LEVOTHYROXINE SODIUM 75 MCG TABLET PO SCH (08:18)
[2020-03-26] MEDS: FUROSEMIDE 20 MG TABLET PO SCH (08:23)
[2020-03-26] MEDS: ASCORBIC ACID 500 MG TABLET PO SCH (08:23)
[2020-03-26] MEDS: DOCUSATE SODIUM 100 MG CAPSULE PO SCH ×2 (08:23→16:41)
[2020-03-26] MEDS: CHOLECALCIFEROL 1,000 UNIT TABLET (VIT D3) PO SCH (08:23)
[2020-03-26] MEDS: FOLIC ACID 1 MG TABLET PO SCH (08:23)
[2020-03-26] MEDS: PANTOPRAZOLE 40 MG VIAL IV SCH (08:23)
[2020-03-26] MEDS ORDERED: FUROSEMIDE 40 MG/4 ML VIAL IV ONE (09:30)
[2020-03-26] MEDS: VANCOMYCIN 1.5 GM in IV D5W 500ml IV SCH ×3 (12:07→23:32)
[2020-03-26] MEDS: HYDROCODONE/APAP 5/325MG 1 EACH TABLET PO PRN ×2 (14:53→21:31)
[2020-03-26] MEDS: SOD FERRIC GLUC 125 MG in IV NS 0.9% 100 ML IV SCH (14:54)
[2020-03-26 16:00] VITALS: BP 132/64
--- NOTE | 2020-03-26 19:10 | NUR ---
M/S RN NOTES PATIENT AWAKE IN BED, NO RESPIRATORY DISTRESS, ASKING FOR WHEN NEXT PAIN MEDICATION IS DUE. TOLD PATIENT NORCO CAN BE GIVEN AT 2100. PATIENT'S PAIN TOLERABLE AT THIS TIME. PATIENT'S SKIN WARM TO TOUCH, LEFT LEG STILL PINKISH/RED COLOR AND EDEMATOUS. PATIENT'S NEEDS ATTENDED, BED ON LOWEST LOCKED POSITION, CALL LIGHT WITHIN REACH. WILL ENDORSE TO ONCOMING NURSE.
--- NOTE | 2020-03-26 19:40 | NUR ---
MS RN OPENING NOTES RECEIVED PATIENT FROM MORNING SHIFT, ALERT AND ORIENTED X 4. VERBALLY RESPONSIVE AND ABLE TO FOLLOW DIRECTIONS. BREATHING REGULAR AND UNLABORED ON ROOM AIR. RIGHT UPPER ARM MIDLINE INTACT AND PATENT, INFUSING WELL WITH NO BLEEDING OR S/S OF INFILTRATION NOTED. DENIES SUICIDAL IDEATION AT THIS TIME. COMPLAINED OF 3/10 LEFT LEG PAIN, NON-PHARMACOLOGICAL INTERVENTIONS PROVIDED. BED LOW AND LOCKED ON SEMI FOWLERS POSITION. CALL LIGHT IN REACH. WILL CONTINUE TO MONITOR.
[2020-03-26 20:00] VITALS: BP 125/72
--- NOTE | 2020-03-26 21:40 | NUR ---
MS RN NOTES COMPLAINED OF 7/10 LEFT FOOT PAIN, NORCO 5/325 GIVEN BY MOUTH. NON-PHARMACOLOGICAL INTERVENTIONS PROVIDED. VITAL SIGNS WNL. WILL CONTINUE TO MONITOR.
--- NOTE | 2020-03-26 22:00 | NUR ---
MS RN NOTES PATIENT NOT ON DVT PUMPS D/T BILATERAL LOWER EXTREMITY EDEMA AND LEFT LEG CELLULITIS. ANTICOAGULANT NOT INDICATED PER MD, PATIENT WITH STEADY AMBULATION.
--- NOTE | 2020-03-26 23:05 | NUR ---
MS RN NOTES COMPLAINED OF 8/10 LEFT FOOT PAIN, DILAUDID 2MG GIVEN VIA IV PUSH . NON-PHARMACOLOGICAL INTERVENTIONS PROVIDED. VITAL SIGNS WNL. WILL CONTINUE TO MONITOR.
[2020-03-26] MEDS: diphenhydrAMINE HCL 25 MG CAPSULE PO PRN (23:38)
--- NOTE | 2020-03-26 23:40 | NUR ---
MS RN NOTES COMPLAINED OF ITCHING ALL OVER HER BODY, BENADRYL 25MG GIVEN BY MOUTH. LOTION AND LIP MOISTURIZER PROVIDED. WILL CONTINUE TO MONITOR.
[2020-03-27] MEDS: HYDROMORPHONE INJ 2 MG/ML DISP.SYRIN IV PRN ×4 (02:52→18:47)
[2020-03-27] MEDS: HYDROCODONE/APAP 5/325MG 1 EACH TABLET PO PRN ×4 (05:05→23:35)
[2020-03-27 05:44] LABS: HIV SCRN 4G wRFX Non Reactive (Non Reactive)
--- NOTE | 2020-03-27 06:20 | NUR ---
MS RN CLOSING NOTES PATIENT IN BED ALERT AND ORIENTED X 4. AFEBRILE WITH NO S/S OF DISTRESS OBSERVED. RIGHT UPPER ARM MIDLINE PATENT AND FLUSHING WELL. COMPLAINED OF 2/10 LEFT FOOT PAIN, NON-PHARMACOLOGICAL INTERVENTIONS PROVIDED. BED LOW AND LOCKED ON SEMI FOWLERS POSITION. CALL LIGHT IN REACH. WILL ENDORSE TO MORNING SHIFT FOR MARTY.
--- NOTE | 2020-03-27 07:15 | NUR ---
M/S RN NOTES PATIENT AWAKE IN NO RESPIRATORY DISTRESS, C/O PAIN 8/10 ON THE LEFT LEG. PATIENT'S SKIN WARM TO TOUCH, IV ACCESS SITE INTACT AND PATENT. PATIENT'S NEEDS ATTENDED, BED ON LOWEST LOCKED POSITION, CALL LIGHT WITHIN REACH. WILL CONTINUE TO MONITOR.
[2020-03-27 07:25] LABS: CALCIUM, SERUM 7.1 mg/dL (8.5-10.1); CREATININE 0.9 mg/dL (0.6-1.3); POTASSIUM 3.8 mmol/L (3.5-5.1)
[2020-03-27] MEDS: LEVOTHYROXINE SODIUM 75 MCG TABLET PO SCH (07:44)
[2020-03-27 08:00] VITALS: BP 121/73
[2020-03-27] MEDS: ASCORBIC ACID 500 MG TABLET PO SCH (08:48)
[2020-03-27] MEDS: DOCUSATE SODIUM 100 MG CAPSULE PO SCH ×2 (08:48→17:09)
[2020-03-27] MEDS: PANTOPRAZOLE 40 MG VIAL IV SCH (08:48)
[2020-03-27] MEDS: CHOLECALCIFEROL 1,000 UNIT TABLET (VIT D3) PO SCH (08:48)
[2020-03-27] MEDS: FOLIC ACID 1 MG TABLET PO SCH (08:48)
--- NOTE | 2020-03-27 09:12 | NUR ---
WOUND CARE CONSULT: PT PRESENTS WITH MULTIPLE BRUISES ALL OVER AND REDNESS TO LEFT LOWER LEG, PRESENT ON ADMISSION. PT IS CONTINENT AND AMBULATORY. WILL SEE PRN.
[2020-03-27 10:26] LABS: *ANA ANTI-CENTROMERE B AB <0.2 AI (0.0-0.9); *ANA ANTI-DNA(DS) AB, QN 1 IU/mL (0-9); *ANA ANTI-JO-1 <0.2 AI (0.0-0.9); *ANA ANTICHROMATIN ANTIBODY <0.2 AI (0.0-0.9); *ANA RNP ANTIBODIES 1.5 AI (0.0-0.9); *ANA SJOGREN'S ANTI-SS-A <0.2 AI (0.0-0.9); *ANA SJOGREN'S ANTI-SS-B <0.2 AI (0.0-0.9); *ANAANTI-SCLERODERMA-70 AB <0.2 AI (0.0-0.9); *ANASMITH AB <0.2 AI (0.0-0.9)
[2020-03-27] MEDS: VANCOMYCIN 1.5 GM in IV D5W 500ml IV SCH ×2 (11:16→23:34)
[2020-03-27] MEDS: SOD FERRIC GLUC 125 MG in IV NS 0.9% 100 ML IV SCH (15:37)
[2020-03-27 16:00] VITALS: BP 114/60
--- NOTE | 2020-03-27 18:48 | NUR ---
M/S RN NOTES PATIENT AWAKE IN BED, NO RESPIRATORY DISTRESS, C/O 8/10 PAIN ON THE LEFT LEG WANTING DILAUDID. PATIENT'S SKIN WARM TO TOUCH, IV ACCESS SITE INTACT AND PATENT. PATIENT'S NEEDS ATTENDED, BED ON LOWEST LOCKED POSITION, CALL LIGHT WITHIN REACH. WILL ENDORSE TO ONCOMING NURSE.
--- NOTE | 2020-03-27 19:20 | NUR ---
MS RN OPENING NOTES RECEIVED PATIENT FROM MORNING SHIFT, ALERT AND ORIENTED X 4. VERBALLY RESPONSIVE AND ABLE TO FOLLOW DIRECTIONS. BREATHING REGULAR AND UNLABORED ON ROOM AIR. RIGHT UPPER ARM MIDLINE INTACT AND PATENT, FLUSHING WELL WITH NO BLEEDING OR S/S OF INFILTRATION NOTED. DENIES SUICIDAL IDEATION AT THIS TIME. COMPLAINED OF 2/10 LEFT LEG PAIN, NON-PHARMACOLOGICAL INTERVENTIONS PROVIDED. BED LOW AND LOCKED ON SEMI FOWLERS POSITION. CALL LIGHT IN REACH. WILL CONTINUE TO MONITOR.
[2020-03-27 20:00] VITALS: BP 107/64
[2020-03-27 20:05] VITALS: BP 107/64
[2020-03-27] MEDS ORDERED: HYDROCODONE/APAP 5/325MG 1 EACH TABLET ONE (22:28)
--- NOTE | 2020-03-27 23:40 | NUR ---
MS RN NOTES COMPLAINED OF 7/10 LEFT LEG PAIN, NORCO 5/325 GIVEN BY MOUTH. NON-PHARMACOLOGICAL INTERVENTIONS PROVIDED. VITAL SIGNS WNL. WILL CONTINUE TO MONITOR.
[2020-03-28] MEDS: HYDROMORPHONE INJ 2 MG/ML DISP.SYRIN IV PRN ×5 (01:57→22:04)
--- NOTE | 2020-03-28 02:00 | NUR ---
MS RN NOTES COMPLAINED OF 8/10 LEFT FOOT PAIN, DILAUDID 2MG GIVEN VIA IV PUSH . NON-PHARMACOLOGICAL INTERVENTIONS PROVIDED. VITAL SIGNS WNL. WILL CONTINUE TO MONITOR.
--- NOTE | 2020-03-28 06:20 | NUR ---
MS RN CLOSING NOTES PATIENT IN BED ALERT AND ORIENTED X 4. AFEBRILE WITH NO S/S OF DISTRESS OBSERVED. RIGHT UPPER ARM MIDLINE PATENT AND FLUSHING WELL. COMPLAINED OF 6/10 LEFT LEG/FOOT PAIN, NON-PHARMACOLOGICAL INTERVENTIONS PROVIDED. BED LOW AND LOCKED ON SEMI FOWLERS POSITION. CALL LIGHT IN REACH. WILL ENDORSE TO MORNING SHIFT FOR MARTY.
[2020-03-28 07:35] LABS: BASOPHILS % (AUTO) 2.1 % (0.0-2.0); EOSINOPHILS % (AUTO) 3.2 % (0.0-6.0); HEMATOCRIT 29 % (33-45); HEMOGLOBIN 9.6 g/dL (11.5-14.8); LYMPHOCYTES # (AUTO) 0.4 /CMM (0.8-4.8); MEAN CORPUSCULAR HGB CONC 33 g/dl (31.0-36.0); MEAN CORPUSCULAR VOLUME 89 fL (82-100); MONOCYTES # (AUTO) 0.3 /CMM (0.1-1.30); MONOCYTES % (AUTO) 21.7 % (2.0-12.0); NEUTROPHILS # (AUTO) 0.7 /CMM (1.8-8.9); RED BLOOD CELL COUNT(AUTO) 3.26 MIL/uL (4.0-5.2)
[2020-03-28 08:00] VITALS: BP 115/59
--- NOTE | 2020-03-28 08:00 | NUR ---
MS RN OPENING NOTES Received Patient awake and resting in bed. A/O x 4. VS stable with no acute distress. Breathing even and unlabored on room air with no respiratory distress. Patient stated BLE pain level of 9/10. Will intervene as ordered. TYLER Midline clean, intact, patent and flushing well. Safety precautions in place. Bed locked and set to lowest position with side rails x 2 up. All needs rendered at this time. Call light within reach. Will continue to monitor.
[2020-03-28 08:01] LABS: CALCIUM, SERUM 7.6 mg/dL (8.5-10.1); CREATININE 0.7 mg/dL (0.6-1.3); POTASSIUM 3.6 mmol/L (3.5-5.1)
[2020-03-28 08:15] LABS: PLATELET COUNT (AUTO) 33 /CMM (150-450); WHITE BLOOD COUNT (AUTO) 1.5 K/uL (4.3-11.0)
[2020-03-28] MEDS: FOLIC ACID 1 MG TABLET PO SCH (08:22)
[2020-03-28] MEDS: PANTOPRAZOLE 40 MG VIAL IV SCH (08:22)
[2020-03-28] MEDS: LEVOTHYROXINE SODIUM 75 MCG TABLET PO SCH (08:22)
[2020-03-28] MEDS: ASCORBIC ACID 500 MG TABLET PO SCH (08:22)
[2020-03-28] MEDS: DOCUSATE SODIUM 100 MG CAPSULE PO SCH ×2 (08:22→16:18)
[2020-03-28] MEDS: CHOLECALCIFEROL 1,000 UNIT TABLET (VIT D3) PO SCH (08:22)
[2020-03-28] MEDS: HYDROCODONE/APAP 5/325MG 1 EACH TABLET PO PRN ×2 (08:25→18:00)
[2020-03-28 09:40] LABS: EOSINOPHILS % (MANUAL) 3 % (0-4); LYMPHOCYTES % (MANUAL) 29 % (16-48); MONOCYTES % (MANUAL) 20 % (0-11.0); NEUTROPHILS % (MANUAL) 48 (42-76)
[2020-03-28] MEDS: VANCOMYCIN HCL 1.25 GM in IV D5W 250 ML IV SCH ×2 (13:06→21:42)
[2020-03-28 13:19] LABS: ALBUMIN 3.2 g/dL (3.4-5.0); BILIRUBIN,DIRECT 0.3 mg/dL (0.0-0.2); BILIRUBIN,TOTAL 1.1 mg/dL (0.2-1.0); TOTAL PROTEIN, SERUM 7.1 g/dL (6.4-8.2)
[2020-03-28 16:00] VITALS: BP 113/64
[2020-03-28] MEDS: SOD FERRIC GLUC 125 MG in IV NS 0.9% 100 ML IV SCH (16:18)
--- NOTE | 2020-03-28 18:31 | NUR ---
MS RN CLOSING NOTES Patient awake and resting in bed. A/O x 4. VS stable with no acute distress. Breathing even and unlabored on room air with no respiratory distress. Patient stated BLE pain level of 7/10. Will endorse pain management to oncoming shift. TYLER Midline clean, intact, patent and flushing well. Safety precautions in place. Bed locked and set to lowest position with side rails x 2 up. All needs rendered at this time. Call light within reach. Will endorse plan of care to oncoming shift.
[2020-03-28] MEDS ORDERED: diphenhydrAMINE HCL 50 MG/ML VIAL IV ONE (19:00)
[2020-03-28] MEDS ORDERED: ACETAMINOPHEN 325 MG TABLET PO ONE (19:00)
[2020-03-28] MEDS ORDERED: LIDOCAINE 1% INJ 50 ML MDV IJ ONE (19:00)
--- NOTE | 2020-03-28 19:45 | NUR ---
RN OPENING NOTES RECEIVED REPORT FROM BRIONNA RNSTEFAN. FOUND Pt AWAKE, WALKING TO RESTROOM. Pt IS A/OX4, VERBAL, ABLE TO MAKE NEEDS KNOWN. NO S/S OF ACUTE DISTRESS OR SOB NOTED. IV ACCESS ON TYLER MIDLINE, SL. CONSENT SIGNED BY Pt FOR BLOOD TRANSFUSION AND BONE MARROW BIOPSY AND ASPIRATION PROCEDURE SCHEDULED FOR TOMORROW BY DR. GRIDER. WAITING FOR TYPE & SCREEN TO BE DONE. PLATELET TRANSFUSION ORDERED BY DR. GRIDER FOR TONIGHT. WAITING FOR PLATELETS TO BE DELIVERED BY [facility], PER BREAK OUT MAN. WILL CALL FLOOR WHEN IT HAS BEEN DELIVERED. SAFETY MEASURES IN PLACE. BED LOW, LOCKED, HOB ELEVATED, SIDE RAILS UP, CALL LIGHT AND BEDSIDE TABLE WITHIN REACH. WILL CONTINUE TO MONITOR Pt's CONDITION AND SAFETY THROUGHOUT THE NIGHT.
[2020-03-28 20:54] VITALS: BP 128/68
[2020-03-29] VITALS (9 sets, daily range): BP systolic 101–150; BP diastolic 54–98
[2020-03-29] MEDS: HYDROCODONE/APAP 5/325MG 1 EACH TABLET PO PRN ×4 (00:09→20:31)
--- NOTE | 2020-03-29 01:30 | NUR ---
RN NOTES RECEIVED CALL FROM LAB THAT THE PLATELETS WERE AVAILABLE.
--- NOTE | 2020-03-29 01:35 | NUR ---
RN NOTES CALLED [facility] TO CHANGE THE TIME FOR THE X1 DOSE OF BENEDRYL & TYLENOL ORDERED BY DR. GRIDER
[2020-03-29] MEDS ORDERED: diphenhydrAMINE HCL 50 MG/ML VIAL IV ONE ×2 (02:00→17:30)
[2020-03-29] MEDS ORDERED: ACETAMINOPHEN 325 MG TABLET PO ONE ×2 (02:00→17:30)
[2020-03-29] MEDS: HYDROMORPHONE INJ 2 MG/ML DISP.SYRIN IV PRN ×5 (02:10→23:32)
--- NOTE | 2020-03-29 03:15 | NUR ---
RN NOTES STARTED PLATELET TRANSFUSION ON Pt. NO S/S OF ACUTE DISTRESS OR SOB NOTED. BASELINE VS: BP 111/66; HR 88; R 18; ORAL TEMP 98F; O2 SAT ON RA 95%. CO-SIGNED BY ADARSH MCDONNELL.
[2020-03-29] MEDS: VANCOMYCIN HCL 1.25 GM in IV D5W 250 ML IV SCH ×2 (05:42→12:37)
[2020-03-29 07:33] LABS: BASOPHILS % (AUTO) 0.8 % (0.0-2.0); EOSINOPHILS % (AUTO) 2.4 % (0.0-6.0); HEMATOCRIT 30 % (33-45); HEMOGLOBIN 9.7 g/dL (11.5-14.8); LYMPHOCYTES # (AUTO) 0.2 /CMM (0.8-4.8); LYMPHOCYTES % (AUTO) 25.4 % (20.0-44.0); MEAN CORPUSCULAR HGB CONC 33 g/dl (31.0-36.0); MEAN CORPUSCULAR VOLUME 89 fL (82-100); MONOCYTES % (AUTO) 3.8 % (2.0-12.0); NEUTROPHILS # (AUTO) 0.7 /CMM (1.8-8.9); NEUTROPHILS % (AUTO) 67.6 % (43.0-81.0); RED BLOOD CELL COUNT(AUTO) 3.33 MIL/uL (4.0-5.2)
[2020-03-29 07:34] LABS: CALCIUM, SERUM 7.5 mg/dL (8.5-10.1); CREATININE 0.7 mg/dL (0.6-1.3); MAGNESIUM 2.3 mg/dL (1.8-2.4); PHOSPHORUS 3.1 mg/dL (2.5-4.9); POTASSIUM 3.8 mmol/L (3.5-5.1)
[2020-03-29 07:42] LABS: PLATELET COUNT (AUTO) 29 /CMM (150-450)
--- NOTE | 2020-03-29 07:43 | NUR ---
RN CLOSING NOTES ENDORSED TO DAYSHIFT ADARSH AVILES FOR Pt's MARTY. NO SIGNIFICANT CHANGES NOTED DURING THE SHIFT. ALL NEEDS MET AND ATTENDED TO. NO S/S OF ACUTE DISTRESS OR SOB NOTED DURING THE NIGHT. SAFETY MEASURES IN PLACE.
--- NOTE | 2020-03-29 08:00 | NUR ---
MS RN OPENING NOTES Received Patient awake and resting in bed. A/O x 4. VS stable with no acute distress. Breathing even and unlabored on room air with no respiratory distress. Patient stated BLE pain level of 8/10. Will intervene as ordered. TYLER Midline clean, intact, patent and flushing well. Safety precautions in place. Bed locked and set to lowest position with side rails x 2 up. All needs rendered at this time. Call light within reach. Will continue to monitor.
[2020-03-29] MEDS: FOLIC ACID 1 MG TABLET PO SCH (08:39)
[2020-03-29] MEDS: PANTOPRAZOLE 40 MG VIAL IV SCH (08:39)
[2020-03-29] MEDS: LEVOTHYROXINE SODIUM 75 MCG TABLET PO SCH (08:39)
[2020-03-29] MEDS: SPIRONOLACTONE 25 MG TABLET PO SCH (08:39)
[2020-03-29] MEDS: DOCUSATE SODIUM 100 MG CAPSULE PO SCH ×2 (08:39→16:35)
[2020-03-29] MEDS: ASCORBIC ACID 500 MG TABLET PO SCH (08:40)
[2020-03-29] MEDS: CHOLECALCIFEROL 1,000 UNIT TABLET (VIT D3) PO SCH (08:40)
[2020-03-29 09:39] LABS: EOSINOPHILS % (MANUAL) 2 % (0-4); LYMPHOCYTES % (MANUAL) 24 % (16-48); MONOCYTES % (MANUAL) 6 % (0-11.0); NEUTROPHILS % (MANUAL) 68 (42-76)
[2020-03-29] MEDS: GABAPENTIN 100 MG CAPSULE PO SCH ×2 (12:30→16:31)
[2020-03-29] MEDS: SOD FERRIC GLUC 125 MG in IV NS 0.9% 100 ML IV SCH (16:30)
[2020-03-29] MEDS ORDERED: PHYTONADIONE INJ 10 MG/1 ML AMPUL SQ ONE (18:00)
--- NOTE | 2020-03-29 18:21 | NUR ---
MS RN CLOSING NOTES Patient awake and resting in bed. A/O x 4. VS stable with no acute distress. Breathing even and unlabored on room air with no respiratory distress. Patient stated BLE pain level of 9/10. Administered Dilaudid 2mg IVP at 1830. Will endorse pain management to oncoming shift. TYLER Midline clean, intact, patent and flushing well. Safety precautions in place. Bed locked and set to lowest position with side rails x 2 up. All needs rendered at this time. Call light within reach. Will endorse plan of care to oncoming shift.
--- NOTE | 2020-03-29 19:45 | NUR ---
RN OPENING NOTES RECEIVED REPORT FROM BRIONNA RNSTEFAN. FOUND Pt AWAKE, SITTING UP IN BED. Pt IS A/OX4, VERBAL, ABLE TO MAKE NEEDS KNOWN. NO S/S OF ACUTE DISTRESS OR SOB NOTED. IV ACCESS ON TYLER MIDLINE, SL. STILL WAITING FOR DR GRIDER TO COME AND DO THE BONE MARROW BIOPSY AND ASPIRATION PROCEDURE. PER REPORT 2ND BAG OF PLATELET TRANSFUSION ORDERED BY DR. GRIDER FOR TONIGHT, WAITING FOR [facility] TO DELIVER IT. PER LAB WILL CALL TO NOTIFY ONCE [facility] DELIVERS THE PLATELET BAG. SAFETY MEASURES IN PLACE. BED LOW, LOCKED, HOB ELEVATED, SIDE RAILS UP, CALL LIGHT AND BEDSIDE TABLE WITHIN REACH. WILL CONTINUE TO MONITOR Pt's CONDITION AND SAFETY THROUGHOUT THE NIGHT.
--- NOTE | 2020-03-29 22:07 | NUR ---
RN NOTES ASSISTED DR GRIDER AT Pt's BEDSIDE TO DO THE BONE MARROW BIOPSY AND ASPIRATION. WAS ALSO ASSISTED BY LIANA DUQUE. PER DR. GRIDER OK TO GIVE X1 DOSE OF MORPHINE NOW FOR Pt's PAIN. WILL CARRY OUT ORDER.
--- NOTE | 2020-03-29 22:30 | NUR ---
RN NOTES CALLED [facility] TO ASK THEM TO RESCHEDULE THE X1 ORDER OF TYLENOL AND BENADRYL THAT IS TO BE GIVEN PRIOR TO THE PLATELET TRANSFUSION SINCE THE PLATELET NEEDED TO BE DELIVERED BY THE [facility]. NON ADMINISTERED THE 1730 DOSE.
[2020-03-29] MEDS ORDERED: MORPHINE SULFATE INJ 2 MG/ML DISP.SYRIN IV ONE (23:00)
[2020-03-30] VITALS (9 sets, daily range): BP systolic 100–120; BP diastolic 60–66
[2020-03-30] MEDS ORDERED: diphenhydrAMINE HCL 50 MG/ML VIAL IV ONE
[2020-03-30] MEDS ORDERED: ACETAMINOPHEN 325 MG TABLET PO ONE
[2020-03-30] MEDS: HYDROCODONE/APAP 5/325MG 1 EACH TABLET PO PRN ×3 (02:32→21:01)
[2020-03-30] MEDS: HYDROMORPHONE INJ 2 MG/ML DISP.SYRIN IV PRN ×4 (03:39→19:52)
--- NOTE | 2020-03-30 06:05 | NUR ---
RN NOTES Pt TOLERATED PLATELET TRANSFUSION WELL. NO S/S OF ACUTE DISTRESS OR SOB NOTED. NO S/S OF ADVERSE REACTION. VS STABLE.
--- NOTE | 2020-03-30 06:33 | NUR ---
RN CLOSING NOTES NO SIGNIFICANT CHANGES IN Pt's CONDITION. ALL NEEDS MET AND ATTENDED TO. NO S/S OF ACUTE DISTRESS OR SOB NOTED DURING THE NIGHT. Pt RESTING COMFORTABLY IN BED. SAFETY MEASURES IN PLACE. WILL ENDORSE TO DAYSHIFT RN FOR Pt's MARTY.
[2020-03-30 07:17] LABS: BASOPHILS % (AUTO) 1.3 % (0.0-2.0); HEMATOCRIT 27 % (33-45); LYMPHOCYTES # (AUTO) 0.4 /CMM (0.8-4.8); LYMPHOCYTES % (AUTO) 34.6 % (20.0-44.0); MEAN CORPUSCULAR HGB CONC 33 g/dl (31.0-36.0); MEAN CORPUSCULAR VOLUME 89 fL (82-100); MONOCYTES # (AUTO) 0.2 /CMM (0.1-1.30); MONOCYTES % (AUTO) 18.6 % (2.0-12.0); NEUTROPHILS # (AUTO) 0.4 /CMM (1.8-8.9); NEUTROPHILS % (AUTO) 40.5 % (43.0-81.0); RED BLOOD CELL COUNT(AUTO) 3.04 MIL/uL (4.0-5.2)
[2020-03-30 07:28] LABS: CALCIUM, SERUM 7.4 mg/dL (8.5-10.1); CREATININE 0.9 mg/dL (0.6-1.3); MAGNESIUM 2.3 mg/dL (1.8-2.4); PHOSPHORUS 3.5 mg/dL (2.5-4.9); POTASSIUM 3.6 mmol/L (3.5-5.1)
[2020-03-30 07:31] LABS: PLATELET COUNT (AUTO) 33 /CMM (150-450)
--- NOTE | 2020-03-30 07:50 | NUR ---
MS RN OPENING NOTES RECEIVED PATIENT IN BED, AWAKE, A/O X4. PATIENT IS ON ROOM AIR; BREATHING IS EVEN AND UNLABORED; NO SOB PRESENT AT THIS MOMENT. COMPLAINING OF PAIN; WILL ADMINISTER PRN PAIN MEDICATION. TYLER MIDLINE PRESENT AND INTACT. SAFETY PRECAUTIONS IN PLACE; BED IN LOW POSITION AND LOCKED, RAILS UP X2, CALL LIGHT WITHIN REACH. WILL CONTINUE TO MONITOR.
[2020-03-30] MEDS: LEVOTHYROXINE SODIUM 75 MCG TABLET PO SCH (07:56)
--- NOTE | 2020-03-30 08:06 | NUR ---
MS RN NOTES DILAUDID ADMINISTRATION DUE TO SEVERE PAIN 06/07
--- NOTE | 2020-03-30 08:07 | NUR ---
MS RN NOTES LAB CALLED WITH CRITICAL LAB VALUES OF WBC 1 AND PLT 33.
[2020-03-30] MEDS: CHOLECALCIFEROL 1,000 UNIT TABLET (VIT D3) PO SCH (09:07)
[2020-03-30] MEDS: DOCUSATE SODIUM 100 MG CAPSULE PO SCH ×2 (09:07→16:10)
[2020-03-30] MEDS: GABAPENTIN 100 MG CAPSULE PO SCH ×2 (09:07→16:09)
[2020-03-30] MEDS: SPIRONOLACTONE 25 MG TABLET PO SCH (09:07)
[2020-03-30] MEDS: FOLIC ACID 1 MG TABLET PO SCH (09:08)
[2020-03-30] MEDS: PANTOPRAZOLE 40 MG VIAL IV SCH (09:08)
[2020-03-30] MEDS: ASCORBIC ACID 500 MG TABLET PO SCH (09:08)
[2020-03-30 09:34] LABS: LYMPHOCYTES % (MANUAL) 31 % (16-48); MONOCYTES % (MANUAL) 26 % (0-11.0); NEUTROPHILS % (MANUAL) 43 (42-76)
[2020-03-30] MEDS: SOD FERRIC GLUC 125 MG in IV NS 0.9% 100 ML IV SCH (14:23)
--- NOTE | 2020-03-30 18:51 | NUR ---
MS RN CLOSING NOTES PATIENT IN BED, AWAKE, A/O X4. PATIENT IS ON ROOM AIR; BREATHING IS EVEN AND UNLABORED; NO SOB PRESENT AT THIS MOMENT. COMPLAINING OF MILD PAIN AT THIS TIME. TYLER MIDLINE PRESENT AND INTACT; DRESSING CHANGED. ALL NEEDS ATTENDED TO THROUGHOUT THE DAY. SAFETY PRECAUTIONS IN PLACE; BED IN LOW POSITION AND LOCKED, RAILS UP X2, CALL LIGHT WITHIN REACH. WILL ENDORSE TO VIDEO MACHINES MECHANIC NURSE.
--- NOTE | 2020-03-30 19:28 | NUR ---
RN OPENING NOTES RECEIVED REPORT FROM JOAN STATON RN. FOUND Pt AWAKE, SITTING UP IN BED, TALKING ON THE PHONE. Pt IS A/OX4, VERBAL, ABLE TO MAKE NEEDS KNOWN. NO S/S OF ACUTE DISTRESS OR SOB NOTED. IV ACCESS ON TYLER MIDLINE, SL. SAFETY MEASURES IN PLACE. BED LOW, LOCKED, HOB ELEVATED, SIDE RAILS UP, CALL LIGHT AND BEDSIDE TABLE WITHIN REACH. WILL CONTINUE TO MONITOR Pt's CONDITION AND SAFETY THROUGHOUT THE NIGHT.
[2020-03-30] MEDS: diphenhydrAMINE HCL 25 MG CAPSULE PO PRN (20:02)
--- NOTE | 2020-03-30 21:58 | NUR ---
RN NOTES SPOKE WITH DIVIDEND DEPOSIT VOUCHER CLERK HOSPITALIST NAYANA AYALA ON THE PHONE REGARDING Pt C/O NAUSEA & X1 EMESIS. GAVE VERBAL ORDER FOR ZOFRAN 4MG PRN. WILL CARRY OUT ORDER.
[2020-03-30] MEDS: ONDANSETRON HCL/PF 4 MG/2 ML VIAL IV PRN (22:18)
[2020-03-30] MEDS: TEMAZEPAM 7.5 MG CAPSULE PO PRN (22:18)
[2020-03-31] MEDS: HYDROMORPHONE INJ 2 MG/ML DISP.SYRIN IV PRN ×5 (00:30→20:57)
[2020-03-31] MEDS: HYDROCODONE/APAP 5/325MG 1 EACH TABLET PO PRN ×4 (03:56→23:48)
--- NOTE | 2020-03-31 06:33 | NUR ---
RN CLOSING NOTES NO SIGNIFICANT CHANGES IN Pt's CONDITION. ALL NEEDS MET AND ATTENDED TO. NO S/S OF ACUTE DISTRESS OR SOB NOTED DURING THE NIGHT. Pt IS RESTING COMFORTABLY IN BED AT THIS TIME. SAFETY MEASURES IN PLACE. WILL ENDORSE TO DAYSHIFT RN FOR Pt's MARTY.
[2020-03-31] MEDS: LEVOTHYROXINE SODIUM 75 MCG TABLET PO SCH ×2 (06:41→08:38)
--- NOTE | 2020-03-31 07:30 | NUR ---
Patient resting in bed , breathing unlabored and even on room air at this time. No complain of pain at this time. Will continue to monitor
[2020-03-31 08:00] VITALS: BP 117/69
[2020-03-31] MEDS: DOCUSATE SODIUM 100 MG CAPSULE PO SCH ×2 (08:36→17:46)
[2020-03-31] MEDS: ASCORBIC ACID 500 MG TABLET PO SCH (08:36)
[2020-03-31] MEDS: CHOLECALCIFEROL 1,000 UNIT TABLET (VIT D3) PO SCH (08:36)
[2020-03-31] MEDS: GABAPENTIN 100 MG CAPSULE PO SCH ×2 (08:36→17:46)
[2020-03-31] MEDS: SPIRONOLACTONE 25 MG TABLET PO SCH (08:36)
[2020-03-31] MEDS: FOLIC ACID 1 MG TABLET PO SCH (08:36)
[2020-03-31] MEDS: PANTOPRAZOLE 40 MG VIAL IV SCH (08:37)
[2020-03-31 09:27] LABS: BASOPHILS % (AUTO) 1.2 % (0.0-2.0); EOSINOPHILS % (AUTO) 4.4 % (0.0-6.0); HEMATOCRIT 30 % (33-45); HEMOGLOBIN 9.6 g/dL (11.5-14.8); LYMPHOCYTES # (AUTO) 0.5 /CMM (0.8-4.8); LYMPHOCYTES % (AUTO) 39.5 % (20.0-44.0); MEAN CORPUSCULAR HGB CONC 33 g/dl (31.0-36.0); MEAN CORPUSCULAR VOLUME 90 fL (82-100); MONOCYTES # (AUTO) 0.2 /CMM (0.1-1.30); MONOCYTES % (AUTO) 15.5 % (2.0-12.0); NEUTROPHILS # (AUTO) 0.5 /CMM (1.8-8.9); NEUTROPHILS % (AUTO) 39.4 % (43.0-81.0); RED BLOOD CELL COUNT(AUTO) 3.29 MIL/uL (4.0-5.2)
[2020-03-31 10:07] LABS: PLATELET COUNT (AUTO) 44 /CMM (150-450); WHITE BLOOD COUNT (AUTO) 1.3 K/uL (4.3-11.0)
[2020-03-31 11:25] LABS: EOSINOPHILS % (MANUAL) 4 % (0-4); LYMPHOCYTES % (MANUAL) 43 % (16-48); MONOCYTES % (MANUAL) 15 % (0-11.0); NEUTROPHILS % (MANUAL) 38 (42-76)
[2020-03-31 16:00] VITALS: BP 124/72
--- NOTE | 2020-03-31 18:56 | NUR ---
PATIENT IN BED, AWAKE, A/O X4. PATIENT IS ON ROOM AIR; BREATHING IS EVEN AND UNLABORED; NO SOB. ON PRN PAIN MEDS DUE TO B/L LEG PAIN AND BACK PAIN. TYLER MIDLINE FLUSHING; DRESSING CHANGED LAST NIGHT. ALL NEEDS ATTENDED TO THROUGHOUT THE DAY. SAFETY PRECAUTIONS IN PLACE; BED IN LOW POSITION AND LOCKED, RAILS UP X2, CALL LIGHT WITHIN REACH. WILL ENDORSE TO AUTOMOTIVE TIRE TESTER NURSE FOR MARTY.
--- NOTE | 2020-03-31 19:20 | NUR ---
RN OPENING NOTES Received patient with complaints of pain, have not sleep since 4am, and soiled dressing of midline. Assessment done. Patient requesting for Benadryl and Restoril at this time. PRN meds for pain not due at this time. Pt able to reposition self and ambulates independently. On fluid restriction, pt verbalized understanding. Midline dressing changed aseptically, tolerated well. Surrounding skin noted with bruises, per AM RN, MD aware. Call light within easy reach. Kept on bed clean, dry and comfortable. Will continue to monitor accordingly.
[2020-03-31] MEDS: TEMAZEPAM 7.5 MG CAPSULE PO PRN (19:21)
[2020-03-31] MEDS: diphenhydrAMINE HCL 25 MG CAPSULE PO PRN (19:22)
[2020-03-31 20:48] VITALS: BP 115/57
[2020-03-31 23:40] VITALS: BP 115/57
[2020-04-01] MEDS: HYDROMORPHONE INJ 2 MG/ML DISP.SYRIN IV PRN ×3 (01:26→18:55)
--- NOTE | 2020-04-01 06:19 | NUR ---
RN CLOSING NOTES Patient, A/O x4, asleep on bed. Pt able to attend ADLs independently, turn and repositions on bed independently. All nursing needs attended. Medicated for pain, noted effective. Afebrile the whole, no new unusualities noted. Call light within easy reach at all times. Endorsed.
[2020-04-01] MEDS: HYDROCODONE/APAP 5/325MG 1 EACH TABLET PO PRN ×2 (06:30→16:41)
[2020-04-01 07:16] LABS: BASOPHILS % (AUTO) 1.3 % (0.0-2.0); EOSINOPHILS % (AUTO) 6.1 % (0.0-6.0); HEMATOCRIT 30 % (33-45); HEMOGLOBIN 10.2 g/dL (11.5-14.8); LYMPHOCYTES # (AUTO) 0.6 /CMM (0.8-4.8); LYMPHOCYTES % (AUTO) 39.4 % (20.0-44.0); MEAN CORPUSCULAR HGB CONC 33 g/dl (31.0-36.0); MEAN CORPUSCULAR VOLUME 90 fL (82-100); MONOCYTES # (AUTO) 0.2 /CMM (0.1-1.30); MONOCYTES % (AUTO) 12.2 % (2.0-12.0); NEUTROPHILS # (AUTO) 0.7 /CMM (1.8-8.9); PLATELET COUNT (AUTO) 59 /CMM (150-450)
[2020-04-01 07:31] LABS: MAGNESIUM 2.1 mg/dL (1.8-2.4); PHOSPHORUS 4.7 mg/dL (2.5-4.9)
[2020-04-01 07:44] LABS: ALBUMIN 3.1 g/dL (3.4-5.0); BILIRUBIN,TOTAL 0.9 mg/dL (0.2-1.0); CALCIUM, SERUM 8.5 mg/dL (8.5-10.1); CREATININE 0.8 mg/dL (0.6-1.3); POTASSIUM 3.9 mmol/L (3.5-5.1); TOTAL PROTEIN, SERUM 7.2 g/dL (6.4-8.2)
[2020-04-01 07:47] LABS: WHITE BLOOD COUNT (AUTO) 1.6 K/uL (4.3-11.0)
[2020-04-01 08:00] VITALS: BP 121/77
--- NOTE | 2020-04-01 08:00 | NUR ---
RN NOTES RECEIVED PATIENT IN THE BED A/O X4, STABLE, RESTING IN THE BED. TOLERATED BREAKFAST WELL. CALL LIGHT WITHIN TO REACH. EDEMA GENERALIZED, PATIENT OBESE, SELF CARE. CONTINUED MONITORING.
[2020-04-01] MEDS: PANTOPRAZOLE 40 MG VIAL IV SCH (09:15)
[2020-04-01] MEDS: GABAPENTIN 100 MG CAPSULE PO SCH ×2 (09:15→16:41)
[2020-04-01] MEDS: DOCUSATE SODIUM 100 MG CAPSULE PO SCH ×2 (09:15→16:41)
[2020-04-01] MEDS: CHOLECALCIFEROL 1,000 UNIT TABLET (VIT D3) PO SCH (09:15)
[2020-04-01] MEDS: SPIRONOLACTONE 25 MG TABLET PO SCH (09:15)
[2020-04-01] MEDS: ASCORBIC ACID 500 MG TABLET PO SCH (09:15)
[2020-04-01] MEDS: FOLIC ACID 1 MG TABLET PO SCH (09:15)
[2020-04-01 09:19] LABS: BAND % (MANUAL) 1 % (0.0-5.0); EOSINOPHILS % (MANUAL) 2 % (0-4); LYMPHOCYTES % (MANUAL) 40 % (16-48); MONOCYTES % (MANUAL) 11 % (0-11.0); NEUTROPHILS % (MANUAL) 46 (42-76)
[2020-04-01] MEDS: MAGNESIUM HYDROXIDE 30 ML UDC PO PRN (09:22)
--- NOTE | 2020-04-01 09:23 | NUR ---
RN NOTES ADMINISTERED DILAUDID 2 MG/ML IV PUSH FOR GENERALIZED PAIN, AND MILK OF MAGNESIA 30 ML PO PRN FOR CONSTIPATION. CALL LIGHT WITHIN TO REACH, CONTINUED MONITORING.
[2020-04-01] MEDS ORDERED: FUROSEMIDE 40 MG/4 ML VIAL IV ONE (12:00)
[2020-04-01] MEDS ORDERED: HYDROMORPHONE 1 MG/1 ML DISP.SYRIN IV ONE (12:00)
[2020-04-01 16:00] VITALS: BP 120/80
--- NOTE | 2020-04-01 16:41 | NUR ---
RN NOTES ADMINISTERED NARCO 5/325 MG PO PRN FOR GENERALIZED PAIN PER PATIENT REQUEST 05/07, V/S TAKEN BP- 120/80, P-92. CONTINUED MONITORING.
--- NOTE | 2020-04-01 18:55 | NUR ---
RN NOTES ADMINISTERED DILAUDID 2 MG/ML IV PUSH FOR GENERALIZED PAIN /10 PER PATIENT REQUEST, V/S TAKEN BP 120/80, P-94, . CALL LIGHT WITHIN TO REACH. ENDORSED ONCOMING NURSE FOLLOW PLAN OF CARE.
[2020-04-01 20:00] VITALS: BP 107/70
[2020-04-01] MEDS: TEMAZEPAM 7.5 MG CAPSULE PO PRN (20:42)
--- NOTE | 2020-04-01 20:45 | NUR ---
MS RN NOTES COMPLAINED OF INABILITY TO STAY ASLEEP, RESTORIL 7.5MG GIVEN BY MOUTH. NON-PHARMACOLOGICAL INTERVENTIONS PROVIDED. WILL CONTINUE TO MONITOR.
[2020-04-01] MEDS: diphenhydrAMINE HCL 25 MG CAPSULE PO PRN (21:47)
--- NOTE | 2020-04-01 22:00 | NUR ---
MS RN NOTES DVT PUMPS CONTRAINDICATED D/T BLE EDEMA, CHEMICAL DVT PPX NOT ORDERED D/T LOW PLATELET LEVEL. WILL CONTINUE TO MONITOR FOR S/S OF BLEEDING.
[2020-04-02] MEDS: HYDROMORPHONE INJ 2 MG/ML DISP.SYRIN IV PRN ×3 (02:10→12:27)
--- NOTE | 2020-04-02 02:10 | NUR ---
MS RN NOTES COMPLAINED OF 8/10 LEFT LEG PAIN, DILAUDID 2MG GIVEN IV PUSH. NON-PHARMACOLOGICAL INTERVENTIONS PROVIDED. VITAL SIGNS WNL. WILL CONTINUE TO MONITOR.
--- NOTE | 2020-04-02 06:15 | NUR ---
MS RN CLOSING NOTES PATIENT IN BED ALERT AND ORIENTED X 4. AFEBRILE WITH NO S/S OF DISTRESS OBSERVED. RIGHT UPPER ARM MIDLINE PATENT AND FLUSHING WELL. COMPLAINED OF 2/10 LEFT LEG/FOOT PAIN, NON-PHARMACOLOGICAL INTERVENTIONS PROVIDED. BED LOW AND LOCKED ON SEMI FOWLERS POSITION. CALL LIGHT IN REACH. WILL ENDORSE TO MORNING SHIFT FOR MARTY.
[2020-04-02 07:01] LABS: BASOPHILS % (AUTO) 0.9 % (0.0-2.0); EOSINOPHILS % (AUTO) 5.5 % (0.0-6.0); HEMATOCRIT 29 % (33-45); HEMOGLOBIN 9.3 g/dL (11.5-14.8); LYMPHOCYTES # (AUTO) 0.4 /CMM (0.8-4.8); LYMPHOCYTES % (AUTO) 37.4 % (20.0-44.0); MEAN CORPUSCULAR HGB CONC 32 g/dl (31.0-36.0); MEAN CORPUSCULAR VOLUME 92 fL (82-100); MONOCYTES # (AUTO) 0.2 /CMM (0.1-1.30); MONOCYTES % (AUTO) 15.8 % (2.0-12.0); NEUTROPHILS # (AUTO) 0.4 /CMM (1.8-8.9); NEUTROPHILS % (AUTO) 40.4 % (43.0-81.0); RED BLOOD CELL COUNT(AUTO) 3.15 MIL/uL (4.0-5.2)
[2020-04-02 07:19] LABS: PLATELET COUNT (AUTO) 45 /CMM (150-450)
[2020-04-02 08:00] VITALS: BP 106/50
--- NOTE | 2020-04-02 08:00 | NUR ---
RN NOTES RECEIVED PATIENT IN THE BED , A/O X4, WAS COMPLAINING OF GENERALIZED PAIN, NO ACUTE RESPIRATORY DISTRESS, RECEIVED CALL FROM LAB WBS DROP 1.0, AND PLT-[id number]. HOSPITALIST AWARE OF, ALSO ADMINISTERED SCHEDULED MEDICATION, V/S STABLE. SAFETY PRECAUTION MAINTAINED ALL THE TIME.
[2020-04-02] MEDS: CHOLECALCIFEROL 1,000 UNIT TABLET (VIT D3) PO SCH (08:16)
[2020-04-02] MEDS: ASCORBIC ACID 500 MG TABLET PO SCH (08:16)
[2020-04-02] MEDS: FOLIC ACID 1 MG TABLET PO SCH (08:16)
[2020-04-02] MEDS: DOCUSATE SODIUM 100 MG CAPSULE PO SCH ×2 (08:16→19:13)
[2020-04-02] MEDS: SPIRONOLACTONE 25 MG TABLET PO SCH (08:16)
[2020-04-02] MEDS: PANTOPRAZOLE 40 MG VIAL IV SCH (08:16)
[2020-04-02] MEDS: GABAPENTIN 100 MG CAPSULE PO SCH ×2 (08:17→19:13)
[2020-04-02] MEDS: LEVOTHYROXINE SODIUM 75 MCG TABLET PO SCH (08:17)
[2020-04-02 08:21] LABS: BAND % (MANUAL) 4 % (0.0-5.0); EOSINOPHILS % (MANUAL) 6 % (0-4); LYMPHOCYTES % (MANUAL) 35 % (16-48); MONOCYTES % (MANUAL) 16 % (0-11.0); NEUTROPHILS % (MANUAL) 39 (42-76)
--- NOTE | 2020-04-02 08:23 | NUR ---
RN NOTES ADMINISTERED DILAUDID 2 MG/ML IV PUSH FOR GENERALIZED PAIN 06/07 PER PATIENT REQUEST, V/S TAKEN BP 106/50, P-[id number].
[2020-04-02] MEDS ORDERED: FUROSEMIDE 40 MG TABLET PO SCH (09:00)
[2020-04-02] MEDS: ONDANSETRON HCL/PF 4 MG/2 ML VIAL IV PRN (09:18)
--- NOTE | 2020-04-02 09:18 | NUR ---
RN NOTES ADMINISTERED ZOFRAN 4 MG/ML IV PUSH FOR NAUSEA.
[2020-04-02] MEDS ORDERED: CEFEPIME 2 GM in IV D5W 100 ML IV SCH (12:00)
[2020-04-02 12:14] LABS: AFP, TUMOR MARKER 4.5 ng/mL (0.0-8.3)
--- NOTE | 2020-04-02 12:27 | NUR ---
RN NOTES ADMINISTERED DILAUDID 2 MG/ML IV PUSH FOR GENERALIZED PAIN 05/07 PER PATIENT REQUEST, V/S TAKEN BP-107/52, P-101, R-20. MEDICATION WERE ADMINISTERED FOR NAUSEA EFFECTIVE.
[2020-04-02 14:00] LABS: CALCIUM, SERUM 8.5 mg/dL (8.5-10.1); CARBON DIOXIDE 27 mmol/L (21-32); CHLORIDE 105 mmol/L (98-107); CREATININE 1.1 mg/dL (0.6-1.3); GLUCOSE 106 mg/dL (74-106); POTASSIUM 3.4 mmol/L (3.5-5.1); SODIUM SERUM 141 mmol/L (136-145); UREA NITROGEN, BLOOD 15 mg/dL (7-18)
[2020-04-02 14:06] LABS: ALANINE AMINOTRANSFERASE 39 U/L (12-78); ALBUMIN 2.8 g/dL (3.4-5.0); ALKALINE PHOSPHATASE 48 U/L (46-116); ASPARTATE AMINOTRANSFERASE 51 U/L (15-37); BILIRUBIN,TOTAL 1.2 mg/dL (0.2-1.0); TOTAL PROTEIN, SERUM 6.4 g/dL (6.4-8.2)
--- NOTE | 2020-04-02 14:28 | NUR ---
RN NOTES GET CRITICAL LAB RESULT LACTIC ACID 2.3, NOTIFIED HOSPITALIST [facility], AND GET TO ORDER 500 ML NS BOLUS X1, ORDER TAKEN AND CARRIED OUT.
[2020-04-02] MEDS ORDERED: IV NS 0.9% 500 ML IV ONE (14:30)
--- NOTE | 2020-04-02 16:00 | NUR ---
RN NOTES PATIENT SHIVERING, T-99.5, DELUSIONAL, CALLED [facility] AND GET TO ORDER INFECTION CONTROL, NS AT 50ML/HR, AND VANCOMYCIN PHARMACY DOSING. ORDER TAKEN AND CARRIED OUT.
[2020-04-02] MEDS: IV NS 0.9% 1,000 ML IV SCH (16:24)
[2020-04-02] MEDS ORDERED: FEE PK DOSING 1 MIN EA MC ONE (16:35)
[2020-04-02] MEDS ORDERED: VANCOMYCIN 1 GM in IV D5W 250 ML IV ONE ×4 (17:00→21:00)
[2020-04-02] MEDS ORDERED: VANCOMYCIN 2 GM in IV D5W 500 ML IV ONE (17:00)
[2020-04-02 17:13] LABS: BILIRUBIN,DIRECT 0.5 mg/dL (0.0-0.2)
[2020-04-02 18:00] VITALS: BP 121/62
--- NOTE | 2020-04-02 18:00 | NUR ---
RN NOTES T-99.8 COOLING MEASURE GIVEN.
[2020-04-02 18:11] LABS: D-DIMER 3.38 mg/L(FEU (0.17-0.50)
--- NOTE | 2020-04-02 18:40 | NUR ---
MS RN NOTES Obtained COVID specimen via nares at this time. Patient tolerated well.
--- NOTE | 2020-04-02 19:00 | NUR ---
RN NOTES PATIENT REMOVED MIDLINE X2 AT THIS TIME, CONFUSED, . CRITICAL LABS NOTIFIED [facility], TO ORDER TEL MONITOR CRISTI. TELE MONITOR ON ST-108, PUT PATIENT REVERSE ISOLATION. ORDERS TAKEN AND CARRIED OUT. ALSO PATIENT HAS CONSULTATION [facility], WILL HAPPEN TODAY OR TOMORROW. PER OMARI COORDINATOR NAME SARABJIT. CALL LIGHT WITHIN TO REACH. ENDORSED ONCOMING NURSE FOLLOW PLAN OF CARE.
[2020-04-02] MEDS: TBO-FILGRASTIM 480 MCG/0.8 ML ML SQ SCH (19:13)
--- NOTE | 2020-04-02 19:20 | NUR ---
FARM ASSISTANT OPENING NOTES RECEIVED PATIENT FROM MORNING SHIFT, ALERT AND ORIENTED X 2 CONFUSED. RESTLESS AND KEPT ON GETTING OUT OF BED. IV LINE PULLED OUT. ON CARDIAC MONITORING WITH SINUS TACHYCARDIA AT 105bpm. BED LOW AND LOCKED ON SEMI FOWLERS POSITION. CALL LIGHT IN REACH. WILL CLOSELY MONITOR.
[2020-04-02 20:00] VITALS: BP 127/81
--- NOTE | 2020-04-02 20:00 | NUR ---
DEMOLITION SPECIALIST NOTES IV LINE REINSERTED ON RIGHT HAND G24 WITH GOOD BLOOD BACKFLOW FLUSHING WELL. IV ANTIBIOTIC STARTED.
[2020-04-02 20:13] VITALS: BP 130/50
--- NOTE | 2020-04-02 20:45 | NUR ---
CUSTOM STOCK MAKER NOTES NURSING TESTING CONSULTANT CALLED TO TRANSFER PATIENT ON MED/SURGE TELE 3RD FLOOR AT ROOM 319 FOR REVERSE ISOLATION. PARAFFIN MACHINE OPERATOR HELLEN NOTIFIED WITH ORDER TO KEEP PATIENT ON TELE/CRISTI MONITORING. 3WEST CHARGE NURSE AND RN TESTING CONSULTANT MADE AWARE.
[2020-04-02 21:00] VITALS: BP 130/50
--- NOTE | 2020-04-02 21:00 | NUR ---
MACHINE LAY OUT WORKER NOTES SPOKE TO PATIENT FAMILY-JESSICA NOTIFIED OF TRANSFER.
--- NOTE | 2020-04-02 21:20 | NUR ---
HANDLE SEWER NOTES TRANSFER PATIENT TO ROOM 319 VIA ACLS. REPORT GIVEN TO ADARSH TAVAREZ. PATIENT REMAINED ALERT AND ORIENTED X 2. BELONGINGS AND IV MEDS ENDORSED TO RN AND OFFICE ASSISTANT.
--- NOTE | 2020-04-02 21:24 | NUR ---
CUAUHT[place] RN NOTES RECEIVED REPORT FROM ADARSH JESSICA; WILL CONT PLAN OF CARE
[2020-04-02] MEDS: MEROPENEM 500 MG in IV NS 0.9% 50 ML IV SCH (21:36)
[2020-04-02] MEDS ORDERED: LACTULOSE 10 G/15 ML UDC (PYXIS) PO ONE (22:00)
--- NOTE | 2020-04-02 22:08 | NUR ---
WET END HELPER NOTES PATIENT A/OX2, CONFUSED; PATIENT COMPLAINING OF CHEST PAIN; CHARGE NURSE AWARE; STAT EKG ORDERED; RT CURRENTLY AT BEDSIDE; AWAITING RESULT OF EKG Addendum: 04/02/20 at 2211 by JUSTINA RODRIGUEZ RN VITALS BP: 109/74 HR: 111, RR: 18 SPO2: 98% ON ROOM AIR;
[2020-04-02] MEDS: LACTULOSE 10 G/15 ML UDC (PYXIS) PO SCH (22:53)
--- NOTE | 2020-04-02 22:55 | NUR ---
AIRCRAFT INSPECTOR NOTES ZAINA MACEDO, NAYANA AT BEDSIDE; PER MD, HOLD SCHEDULED LACTULOSE AT 2300 SINCE PATIENT RECEIVED 20G 2200; AWAITING ORDERS
[2020-04-02 23:00] LABS: APPEARANCE,URINE CLEAR (CLEAR); BILIRUBIN,URINE NEGATIVE (NEGATIVE); BLOOD, URINE NEGATIVE Ery/uL (NEGATIVE); COLOR,URINE YELLOW (YELLOW); KETONES,URINE NEGATIVE (NEGATIVE); LEUKOCYTE ESTERASE ,URINE NEGATIVE (NEGATIVE); NITRITE, URINE NEGATIVE (NEGATIVE); PROTEIN,URINE NEGATIVE (NEGATIVE); UGLUCOSE NEGATIVE (NEGATIVE); UROBILINOGEN,URINE 0.2 EU/dL (0.2)
[2020-04-03] VITALS (9 sets, daily range): BP systolic 120–141; BP diastolic 65–82
--- NOTE | 2020-04-03 00:01 | NUR ---
ELECTRONIC WIRER NOTES PATIENT A/OX2, CONFUSED; KEEPS TRYING TO GET OUT OF BED; SPOKE WITH BOOM TENDER, ZAINA MACEDO, NAYANA; ORDER HALDOL 5MG IM Q8HRS, PRN FOR SEVERE AGITATION; WILL CONT TO MONITOR
[2020-04-03] MEDS ORDERED: HALOPERIDOL LACTATE INJ 5 MG/ML VIAL IM PRN (00:30)
[2020-04-03] MEDS ORDERED: VANCOMYCIN 1 GM in IV D5W 250 ML IV SCH ×2 (01:00→04:00)
--- NOTE | 2020-04-03 01:00 | NUR ---
DRAGLINE OPERATOR HELPER NOTES SPOKE WITH PATIENT'S SISTER, PER SISTER, SHE DOES NOT WANT PATIENT TO RECEIVE HALDOL IM PRN; FAMILY WAS INFORMED ON REASON FOR MD ORDER, SISTER STILL DECLINED; SISTER WAS INFORMED IF NO HALDOL IM, PATIENT MAY NEED RESTRAINTS; PER FAMILY, THEY DO NOT WANT PATIENT TO BE RESTRAINED EITHER; MD AWARE, PER MD, OKAY FOR 1:1 SITTER IF NEEDED; CHARGE NURSE AWARE; WILL CONT TO MONITOR
--- NOTE | 2020-04-03 03:37 | NUR ---
ATOMIC FUEL ASSEMBLER NOTES PATIENT NOT FOLLOWING INSTRUCTIONS; PATIENT WAS INSTRUCTED TO USE CALL LIGHT IF SHE NEEDS TO USE THE RESTROOM; CALL LIGHT WITHIN REACH; PATIENT STILL GETS OUT OF BED WITH NO ASSISTANCE; CHARGE NURSE AWARE; NURSING CERAMIC TILER AWARE; POSSIBLE SITTER ORDER; WILL CONT TO MONITOR
[2020-04-03] MEDS: MEROPENEM 500 MG in IV NS 0.9% 50 ML IV SCH ×4 (04:02→20:28)
--- NOTE | 2020-04-03 05:10 | NUR ---
PRELIM BLOOD CULTURE RESULT: blood culture prelim result gram negative rods reported by bessie from lab. relayed to assigned xavier dennis to notify hospitalist
--- NOTE | 2020-04-03 05:26 | NUR ---
BAR SUPERVISOR NOTES R HAND # 24 IV SITE UNABLE TO FLUSH PROPERLY; ATTEMPTED IV ACCESS, UNABLE TO OBTAIN NEW IV SITE; CHARGE NURSE, , AND NURSING COMPLIANCE REVIEWER AWARE; PATIENT HAS SCHEDULED IV ABX DUE AT THIS TIME; PATIENT MAY MISS DOSE IF UNABLE TO OBTAIN IV ACCESS; PER , OK FOR MIDLINE INSERTION; CHARGE NURSE AND NURSING COMPLIANCE REVIEWER AWARE; AWAITING MIDLINE INSERTION IN AM; WILL CONT TO MONITOR; SPOKE WITH PATIENT'S MOTHER; PER MOTHER, SHE WILL ATTEMPT TO CALL PATIENT AND INSTRUCT HER ON COMPLIANCE THROUGHOUT HOSPITALIZATION; MOTHER WAS INFORMED PATIENT PULLED OUT PREVIOUS MIDLINE IV ACCESS; MOTHER WAS INFORMED THAT PATIENT MAY NEED TO BE RESTRAINED IF PATIENT KEEPS PULLING OUT TUBINGS AND NOT FOLLOWING INSTRUCTIONS; FAMILY IS AWARE BUT INFORMED US PATIENT MAY HAVE ANXIETY ATTACK IF RESTRAINED; SITTER REQUESTED FOR AM SHIFT, WILL CONT TO MONITOR Addendum: 04/03/20 at 0532 by JUSTINA RODRIGUEZ RN PATIENT'S FAMILY REFUSING FOR MITTENS/BILATERAL SOFT WRIST RESTRAINTS; CHARGE NURSE, NURSING COMPLIANCE REVIEWER AND MD ALL AWARE; WILL CONT TO MONITOR
--- NOTE | 2020-04-03 06:27 | NUR ---
ELECTRIC SWITCH TESTER NOTES QUALITY CONTROL LAB TECHNICIAN CURRENTLY AT BEDSIDE FOR AM LAB DRAW;
--- NOTE | 2020-04-03 06:29 | NUR ---
DIRECTOR CLOUD TRANSFORMATION CLOSING NOTES PATIENT RESTING IN BED COMFORTABLY; A/OX2-3, MORE ALERT NOW BUT STILL CONFUSED; PATIENT CANNOT FOLLOW INSTRUCTIONS; PATIENT CONTINUES TO GET OUT OF BED WITHOUT ASSISTANCE; CHARGE NURSE, NURSING STRAW HAT BRIM RAISER OPERATOR AWARE; MD AWARE; TELE MONITOR READS NORMAL SINUS RHYTHM 80-90BPM; UNABLE TO OBTAIN IV ACCESS; AWAITING MIDLINE INSERTION; ALL NEEDS RENDERED; ISOLATION PRECAUTIONS MAINTAINED; SAFETY PRECAUTIONS IMPLEMENTED; BED LOCKED IN LOW POSITION; SIDE RAILS X2; CALL LIGHT WITHIN REACH; WILL ENDORSE MARTY TO ONCOMING SHIFT
[2020-04-03 08:43] LABS: BASOPHILS % (AUTO) 0.3 % (0.0-2.0); EOSINOPHILS % (AUTO) 0.5 % (0.0-6.0); HEMATOCRIT 30 % (33-45); HEMOGLOBIN 9.9 g/dL (11.5-14.8); LYMPHOCYTES # (AUTO) 0.3 /CMM (0.8-4.8); LYMPHOCYTES % (AUTO) 5.4 % (20.0-44.0); MEAN CORPUSCULAR HGB CONC 33 g/dl (31.0-36.0); MEAN CORPUSCULAR VOLUME 91 fL (82-100); MONOCYTES # (AUTO) 0.4 /CMM (0.1-1.30); MONOCYTES % (AUTO) 8.3 % (2.0-12.0); NEUTROPHILS % (AUTO) 85.5 % (43.0-81.0); RED BLOOD CELL COUNT(AUTO) 3.31 MIL/uL (4.0-5.2); WHITE BLOOD COUNT (AUTO) 4.7 K/uL (4.3-11.0)
[2020-04-03] MEDS: FOLIC ACID 1 MG TABLET PO SCH (08:44)
[2020-04-03] MEDS: DOCUSATE SODIUM 100 MG CAPSULE PO SCH ×2 (08:44→16:11)
[2020-04-03] MEDS: GABAPENTIN 100 MG CAPSULE PO SCH ×2 (08:44→16:06)
[2020-04-03] MEDS: ASCORBIC ACID 500 MG TABLET PO SCH (08:45)
[2020-04-03] MEDS: CHOLECALCIFEROL 1,000 UNIT TABLET (VIT D3) PO SCH (08:45)
[2020-04-03] MEDS: LEVOTHYROXINE SODIUM 75 MCG TABLET PO SCH (08:45)
[2020-04-03 08:46] LABS: PLATELET COUNT (AUTO) 34 /CMM (150-450)
[2020-04-03] MEDS: PANTOPRAZOLE 40 MG VIAL IV SCH (08:46)
[2020-04-03] MEDS: LACTULOSE 10 G/15 ML UDC (PYXIS) PO SCH ×2 (08:48→16:06)
[2020-04-03 08:51] LABS: CALCIUM, SERUM 8.4 mg/dL (8.5-10.1); CREATININE 0.9 mg/dL (0.6-1.3); MAGNESIUM 1.7 mg/dL (1.8-2.4); PHOSPHORUS 3.5 mg/dL (2.5-4.9); POTASSIUM 3.5 mmol/L (3.5-5.1)
[2020-04-03 08:59] LABS: BAND % (MANUAL) 13 % (0.0-5.0); EOSINOPHILS % (MANUAL) 2 % (0-4); LYMPHOCYTES % (MANUAL) 3 % (16-48); MONOCYTES % (MANUAL) 5 % (0-11.0); NEUTROPHILS % (MANUAL) 77 (42-76)
[2020-04-03] MEDS: HYDROCODONE/APAP 5/325MG 1 EACH TABLET PO PRN ×3 (09:31→23:37)
[2020-04-03] MEDS: Magnesium 1GM/D5W 100ML PREMIX 100 ML IV SCH ×2 (09:31→11:02)
--- NOTE | 2020-04-03 09:40 | NUR ---
RIGHT UA MIDLINE #18 INTACT AND PATENT INSERTED BY MIDLINE NURSE. DRESSING C/D/I.
[2020-04-03] MEDS ORDERED: HYDROMORPHONE 1 MG/1 ML DISP.SYRIN IV ONE ×2 (12:10→18:00)
[2020-04-03] MEDS: IV NS 0.9% 1,000 ML IV SCH (12:44)
--- NOTE | 2020-04-03 15:27 | NUR ---
BLACK TOP ROLLER NOTES PER RADHA Rene NP OK TO TRANSFER PATIENT TO TELE STATUS. NOTED AND CARRIED OUT.
--- NOTE | 2020-04-03 17:34 | NUR ---
rn notes Hold Granix dose today per pharmacist Shane. Per Shane Pharmacist, hold Granix for 3 days, ANC >1. will notify
[2020-04-03] MEDS: TBO-FILGRASTIM 480 MCG/0.8 ML ML SQ SCH (17:38)
--- NOTE | 2020-04-03 19:52 | NUR ---
WAITRESS NOTES PATIENT RECEIVED RESTING IN BED COMFORTABLY; A/OX2-3, MORE ALERT NOW; BREATHING EVEN AND UNLABORED; NO SOB NOTED; PATIENT TOLERATING ROOM AIR WELL; PATIENT ON 1000ML FLUID RESTRICTION DAILY; PATIENT AWARE OF RESTRICTION; TELE MONITOR READS NORMAL SINUS RHYTHM; TYLER MIDLINE INTACT AND INFUSING 50ML/HR OF NS, PATIENT TOLERATING INFUSION WELL; PER FARMWORKER DIVERSIFIED CROPS, PATIENT REQUESTING PAIN MEDICATION D/T GENERALIZED PAIN; PATIENT REPORTED NORCO DOES NOT DO ANYTHING FOR HER AND THAT DILAUDID WORKS MUCH BETTER; PATIENT WAS INFORMED SHE JUST RECEIVED DILAUDID RECENTLY AND WILL NOT BE ABLE TO ADMINISTER; PER DAY SHIFT, MD ONLY ORDERED DILAUDID FOR ONE TIME ADMINISTRATION ONLY; PATIENT ABLE TO MAKE NEEDS KNOWN AT THIS TIME; ISOLATION PRECAUTIONS MAINTAINED; AWAITING COVID SWAB RESULTS; PER DAY SHIFT, NEED OB STOOL COLLECTION SHE WAS NOT ABLE TO HAVE BOWEL MOVEMENT; WILL MONITOR; SAFETY PRECAUTIONS IMPLEMENTED; BED LOCKED IN LOW POSITION; SIDE RAILS X2; CALL LIGHT WITHIN EASY REACH; WILL CONT TO MONITOR
[2020-04-03] MEDS: ONDANSETRON HCL/PF 4 MG/2 ML VIAL IV PRN (22:13)
[2020-04-03] MEDS: PHYTONADIONE INJ 10 MG/1 ML AMPUL SQ ONE ×2 (22:30→23:29)
--- NOTE | 2020-04-03 22:45 | NUR ---
ORNAMENTAL PLASTERER HELPER NOTES SPOKE WITH DR. GRIDER, DR. GRIDER ORDERED VITAMIN K SQ INJECTION D/T ABNORMAL LABS; DR. GRIDER AWARE AND WILL AWAIT AM LAB RESULTS; PER DR. GRIDER, PATIENT MAY NEED BLOOD TRANSFUSION IF RBC ARE STILL LOW; WILL CONT TO MONITOR
--- NOTE | 2020-04-03 23:40 | NUR ---
PCB DESIGNER NOTES VITAMIN K AMPULE BROKE INTO PIECES; CHARGE NURSE AND NURSING LENS MOLDING EQUIPMENT OPERATOR AWARE; WILL GET ANOTHER AMPULE FOR SQ INJECTION;
[2020-04-03] MEDS ORDERED: PHYTONADIONE INJ 10 MG/1 ML AMPUL ONE (23:45)
[2020-04-04] VITALS: BP 127/78
--- NOTE | 2020-04-04 00:13 | NUR ---
HELIX COIL WINDER NOTES PATIENT A/OX4, PATIENT REQUESTING PAIN MEDICATION FOR GENERALIZED BODY PAIN 04/06; VITAL SIGNS STABLE; [facility]CO ADMINISTERED PER MD ORDER; WILL CONT TO MONITOR
[2020-04-04 04:00] VITALS: BP 101/63
--- NOTE | 2020-04-04 04:34 | NUR ---
QA TEST ANALYST NOTES SPOKE WITH ADARSH DUQUE FROM [facility]; PER [facility], THEY ARE OKAY TO TRANSFER PATIENT WITHOUT COVID RESULTS; PER DUNIA [facility] WILL HAVE TO RE-SWAB REGARDLESS OF COVID RESULT FROM [facility]; SPOKE WITH PATIENT'S MOTHER, AND INFORMED HER OF NEW CHANGES AND POSSIBLE TRANSFER IN AM TOMORROW; WILL CONT TO MONITOR; WILL INFORM ON COMING SHIFT
[2020-04-04] MEDS: MEROPENEM 500 MG in IV NS 0.9% 50 ML IV SCH ×3 (04:36→20:44)
--- NOTE | 2020-04-04 06:29 | NUR ---
CIGARETTE STAMPER CLOSING NOTES PATIENT RESTING IN BED COMFORTABLY; EASILY AROUSED; A/OX4, BREATHING EVEN AND UNLABORED; NO SOB NOTED; PATIENT STABLE ON ROOM AIR; PATIENT ABLE TO MAKE NEEDS KNOWN THROUGHOUT SHIFT; PATIENT AWARE OF 1000CC FLUID RESTRICTION, DAILY; R UA #18 MIDLINE, INTACT AND PATENT; INFUSING NS @ 50CC/HR; PATIENT TOLERATING IVF WELL; TELE MONITOR READS NSR 83BPM; ALL NEEDS RENDERED; SAFETY PRECAUTIONS IMPLEMENTED; BED LOCKED IN LOW POSITION; SIDE RAILS X2; CALL LIGHT WITHIN REACH; WILL ENDORSE MARTY TO ONCOMING SHIFT
--- NOTE | 2020-04-04 06:40 | NUR ---
EMERGENCY MEDICINE MEDICAL DIRECTOR NOTES SPOKE WITH RADIOLOGY, CT OF ABDOMEN WITHOUT CONTRAST ORDERED, WILL INFORM DAY SHIFT NURSE; RADIOLOGY WILL JUNK REMOVAL SPECIALIST PATIENT AROUND 0800 OR 1000;
[2020-04-04 06:42] LABS: BASOPHILS % (AUTO) 0.9 % (0.0-2.0); EOSINOPHILS % (AUTO) 1.9 % (0.0-6.0); HEMATOCRIT 29 % (33-45); HEMOGLOBIN 9.5 g/dL (11.5-14.8); LYMPHOCYTES # (AUTO) 0.5 /CMM (0.8-4.8); LYMPHOCYTES % (AUTO) 10.4 % (20.0-44.0); MEAN CORPUSCULAR HGB CONC 33 g/dl (31.0-36.0); MEAN CORPUSCULAR VOLUME 91 fL (82-100); MONOCYTES # (AUTO) 0.4 /CMM (0.1-1.30); MONOCYTES % (AUTO) 8.8 % (2.0-12.0); NEUTROPHILS # (AUTO) 3.7 /CMM (1.8-8.9); RED BLOOD CELL COUNT(AUTO) 3.18 MIL/uL (4.0-5.2); WHITE BLOOD COUNT (AUTO) 4.8 K/uL (4.3-11.0)
[2020-04-04 06:49] LABS: PLATELET COUNT (AUTO) 33 /CMM (150-450)
--- NOTE | 2020-04-04 06:49 | NUR ---
MANAGER OF HOSPITAL CLOSING NOTES SPOKE WITH LAB, PLATELET COUNT 33K, DR. GRIDER AWARE OF ABNORMAL LABS AND IS FOLLOWING THIS PATIENT'S CARE; WILL INFORM ONCOMING SHIFT
[2020-04-04 06:51] LABS: ALBUMIN 2.5 g/dL (3.4-5.0); CALCIUM, SERUM 8.2 mg/dL (8.5-10.1); MAGNESIUM 1.9 mg/dL (1.8-2.4); POTASSIUM 3.8 mmol/L (3.5-5.1); TOTAL PROTEIN, SERUM 6.3 g/dL (6.4-8.2)
--- NOTE | 2020-04-04 07:40 | NUR ---
TELE/RN OPENING NOTES RECEIVED PATIENT ON BED. ALERT AND ORIENTED X4. PATIENT IN NO APPARENT RESPIRATORY DISTRESS NOTED. COMPLAINED OF PAIN RATED 8/10. WILL CONTINUE TO MONITOR.
[2020-04-04] MEDS: LEVOTHYROXINE SODIUM 75 MCG TABLET PO SCH (07:50)
[2020-04-04 08:00] VITALS: BP 138/70
[2020-04-04] MEDS: PANTOPRAZOLE 40 MG VIAL IV SCH (08:09)
[2020-04-04] MEDS: FOLIC ACID 1 MG TABLET PO SCH (08:09)
[2020-04-04] MEDS: DOCUSATE SODIUM 100 MG CAPSULE PO SCH ×2 (08:09→16:55)
[2020-04-04] MEDS: LACTULOSE 10 G/15 ML UDC (PYXIS) PO SCH ×2 (08:09→16:54)
[2020-04-04] MEDS: GABAPENTIN 100 MG CAPSULE PO SCH ×2 (08:09→16:55)
[2020-04-04] MEDS: ASCORBIC ACID 500 MG TABLET PO SCH (08:09)
[2020-04-04] MEDS: CHOLECALCIFEROL 1,000 UNIT TABLET (VIT D3) PO SCH (08:10)
[2020-04-04] MEDS: HYDROCODONE/APAP 5/325MG 1 EACH TABLET PO PRN (08:14)
[2020-04-04] MEDS: ONDANSETRON HCL/PF 4 MG/2 ML VIAL IV PRN ×2 (08:19→16:58)
--- NOTE | 2020-04-04 08:26 | NUR ---
TELE/RN NOTES PATIENT IS OUT IN THE UNIT FOR CT SCAN ABDOMEN INDUSTRIAL RELATIONS REPRESENTATIVE BY TECH.
[2020-04-04 08:56] LABS: BAND % (MANUAL) 4 % (0.0-5.0); EOSINOPHILS % (MANUAL) 1 % (0-4); LYMPHOCYTES % (MANUAL) 8 % (16-48); MONOCYTES % (MANUAL) 10 % (0-11.0); NEUTROPHILS % (MANUAL) 77 (42-76)
--- NOTE | 2020-04-04 09:13 | NUR ---
TELE/RN NOTES PATIENT IS BACK IN THE UNIT FROM RADIOLOGY.
[2020-04-04 09:19] LABS: D-DIMER 2.7 mg/L(FEU (0.17-0.50)
[2020-04-04] MEDS: HYDROMORPHONE 1 MG/1 ML DISP.SYRIN IV PRN ×3 (12:04→20:44)
--- NOTE | 2020-04-04 12:39 | NUR ---
TELE/RN NOTES PROCALCITONIN 25.44 MD IS AWARE.
--- NOTE | 2020-04-04 12:54 | NUR ---
TELE/RN NOTES PATIENT HAD EMESIS X 1 AFTER SHE ATE. ICE CHIPS WAS GIVEN, ONDANSETRON IV IS NOT DUE. WILL CONTINUE TO MONITOR
--- NOTE | 2020-04-04 13:39 | NUR ---
TELE/RN NOTES PER PATIENT DAUGHTER MELISSA RIVERA BLOOD TRANSFUSION IS WITH HELD UNTIL TOMORROW FOR LABORATORY RESULT IS IN. MD IS AWARE.
[2020-04-04] MEDS: IV NS 0.9% 1,000 ML IV SCH (17:04)
--- NOTE | 2020-04-04 19:32 | NUR ---
TELE/RN CLOSING NOTES PATIENT SLEEPING IN BED, EASILY AROUSABLE BY NAME AND TOUCH . ALERT AND ORIENTED X4. ON ROOM AIR . NO S/S OF ACUTE RESPIRATORY DISTRESS; BREATHING IS EVEN AND UNLABORED. TELE MONITOR READING OCCASIONAL PVC SR 81BPM. PATIENT DENIES ANY PAIN AT THIS TIME. IV ACCESS AT RIGHT UPPER ARM # 18 MIDLINE WITH IV FLUID OF NS 1L AT 50 ML/HR ON AND INFUSING WELL. SEEN AND EXAMINE BY MD WITH ORDERS MADE AND CARRIED OUT. ALL DUE MEDICATION WAS GIVEN. CHECKED PATIENT EVERY 2 HOURS. KEPT PATIENT CLEAN AND DRY THE WHOLE TIME. SAFETY MEASURES IN PLACE, BED IN LOWEST POSITION AND LOCKED, ALARM ON, SIDE RAILS X2, CALL LIGHT WITHIN REACH. WILL ENDORSED TO SPINNING LATHE OPERATOR AUTOMATIC FOR MARTY.
--- NOTE | 2020-04-04 19:45 | NUR ---
TELE/RN OPENING NOTES RECEIVED PATIENT IN BED AWAKE WATCHING TV, ALERT AND ORIENTED X 4. PATIENT IS ON ROOM AIR TOLERATING WELL. NO SIGNS OF SOB OR RESPIRATORY DISTRESS NOTED. PATIENT IS COMFORTABLE AT THE MOMENT. PATIENTS RIGHT UPPER ARM # 18 G MIDLINE IS INTACT AND FLUSHING WELL, RUNNING NS AT 50 ML/HR. TELE READING AT SINUS RHYTHM 72 BPM. SAFETY MEASURES ARE IN PLACE BED IS LOCKED AND IN THE LOW POSITION WITH SIDE RAILS UP X 2. CALL LIGHT IS WITHIN REACH. WILL CONTINUE TO MONITOR PATIENT THROUGH SHIFT.
[2020-04-04 20:00] VITALS: BP 129/63
[2020-04-04] MEDS ORDERED: [UNRECOGNIZED DRUG - OTHER] MM PRN (20:30)
[2020-04-04] MEDS: ACYCLOVIR 800 MG TABLET PO SCH (20:44)
--- NOTE | 2020-04-04 20:44 | NUR ---
TELE/ RN NOTES PATIENT WAS COMPLAINING OF PAIN AROUND LEFT FLANK AREA 06/07. DILAUDID 1 MG IV WAS GIVEN. PATIENTS VITALS SIGNS ARE WITHIN NORMAL LIMITS. WILL CONTINUE TO MONITOR.
[2020-04-04 23:03] LABS: OCCULT BLOOD STOOL NEGATIVE (NEGATIVE)
[2020-04-05] VITALS: BP 116/69
[2020-04-05] MEDS: HYDROMORPHONE 1 MG/1 ML DISP.SYRIN IV PRN ×5 (01:36→21:00)
--- NOTE | 2020-04-05 01:40 | NUR ---
TELE/ RN NOTES PATIENT WAS COMPLAINING OF PAIN AROUND FLANK AREA 05/07. DILAUDID 1 MG IV WAS GIVEN. PATIENTS VITALS SIGNS ARE WITHIN NORMAL LIMITS. WILL CONTINUE TO MONITOR
[2020-04-05] MEDS: ONDANSETRON HCL/PF 4 MG/2 ML VIAL IV PRN ×3 (01:51→16:59)
--- NOTE | 2020-04-05 01:55 | NUR ---
TELE/RN NOTES PATIENT WAS COMPLAINING OF NAUSEA, ZOFRAN 4MG IV WAS GIVEN AT 0151HRS. WILL CONTINUE TO MONITOR.
[2020-04-05 04:00] VITALS: BP 126/71
[2020-04-05] MEDS: IV NS 0.9% 1,000 ML IV SCH (04:00)
[2020-04-05] MEDS: MEROPENEM 500 MG in IV NS 0.9% 50 ML IV SCH ×2 (05:01→13:56)
--- NOTE | 2020-04-05 06:15 | NUR ---
TELE/RN CLOSING NOTES PATIENT IN BED SLEEPING, ALERT AND ORIENTED X 4. PATIENT IS ON ROOM AIR TOLERATING WELL. NO SIGNS OF SOB OR RESPIRATORY DISTRESS NOTED. PATIENT IS COMFORTABLE AT THE MOMENT. PATIENTS RIGHT UPPER ARM # 18 G MIDLINE IS INTACT AND FLUSHING WELL, RUNNING NS AT 50 ML/HR. TELE READING AT SINUS RHYTHM 66 BPM. SAFETY MEASURES ARE IN PLACE BED IS LOCKED AND IN THE LOW POSITION WITH SIDE RAILS UP X 2. CALL LIGHT IS WITHIN REACH. WILL ENDORSE CARE TO DAY NIGHT.
--- NOTE | 2020-04-05 07:22 | NUR ---
rn notes patient remains on room air, no sob noted, a/o x4 BRP. TYLER 18 midline. pain denies pain at this time. Bed at the lowest setting, call light within reach, side rails up x2.
[2020-04-05 08:00] VITALS: BP 127/74
[2020-04-05] MEDS: LEVOTHYROXINE SODIUM 75 MCG TABLET PO SCH (08:11)
[2020-04-05] MEDS: ASCORBIC ACID 500 MG TABLET PO SCH (08:11)
[2020-04-05] MEDS: CHOLECALCIFEROL 1,000 UNIT TABLET (VIT D3) PO SCH (08:11)
[2020-04-05] MEDS: FOLIC ACID 1 MG TABLET PO SCH (08:11)
[2020-04-05] MEDS: LACTULOSE 10 G/15 ML UDC (PYXIS) PO SCH ×2 (08:12→16:25)
[2020-04-05] MEDS: DOCUSATE SODIUM 100 MG CAPSULE PO SCH ×2 (08:12→16:25)
[2020-04-05] MEDS: GABAPENTIN 100 MG CAPSULE PO SCH ×2 (08:12→16:25)
[2020-04-05] MEDS: ACYCLOVIR 800 MG TABLET PO SCH ×2 (08:12→16:25)
[2020-04-05] MEDS: PANTOPRAZOLE 40 MG VIAL IV SCH (08:12)
[2020-04-05 08:39] LABS: BASOPHILS % (AUTO) 0.6 % (0.0-2.0); EOSINOPHILS % (AUTO) 2.9 % (0.0-6.0); HEMATOCRIT 28 % (33-45); HEMOGLOBIN 9.1 g/dL (11.5-14.8); LYMPHOCYTES # (AUTO) 0.6 /CMM (0.8-4.8); LYMPHOCYTES % (AUTO) 17.6 % (20.0-44.0); MEAN CORPUSCULAR HGB CONC 33 g/dl (31.0-36.0); MEAN CORPUSCULAR VOLUME 91 fL (82-100); MONOCYTES # (AUTO) 0.3 /CMM (0.1-1.30); MONOCYTES % (AUTO) 8.3 % (2.0-12.0); NEUTROPHILS # (AUTO) 2.4 /CMM (1.8-8.9); NEUTROPHILS % (AUTO) 70.6 % (43.0-81.0); RED BLOOD CELL COUNT(AUTO) 3.06 MIL/uL (4.0-5.2); WHITE BLOOD COUNT (AUTO) 3.5 K/uL (4.3-11.0)
[2020-04-05 08:52] LABS: CREATININE 0.9 mg/dL (0.6-1.3); MAGNESIUM 1.7 mg/dL (1.8-2.4); PHOSPHORUS 3.3 mg/dL (2.5-4.9); POTASSIUM 3.6 mmol/L (3.5-5.1)
[2020-04-05 08:53] LABS: PLATELET COUNT (AUTO) 39 /CMM (150-450)
[2020-04-05 08:54] LABS: ALBUMIN 2.5 g/dL (3.4-5.0); BILIRUBIN,DIRECT 0.4 mg/dL (0.0-0.2); TOTAL PROTEIN, SERUM 6.2 g/dL (6.4-8.2)
[2020-04-05 09:23] LABS: D-DIMER 0.92 mg/L(FEU (0.17-0.50)
[2020-04-05 10:24] LABS: BAND % (MANUAL) 1 % (0.0-5.0); EOSINOPHILS % (MANUAL) 3 % (0-4); LYMPHOCYTES % (MANUAL) 14 % (16-48); MONOCYTES % (MANUAL) 7 % (0-11.0); NEUTROPHILS % (MANUAL) 75 (42-76)
[2020-04-05] MEDS: Magnesium 1GM/D5W 100ML PREMIX 100 ML IV SCH ×2 (10:59→12:01)
[2020-04-05] MEDS: VITS A AND D/WHITE PET/LANOLIN 5 GM PACKET TP SCH ×2 (11:30→16:27)
[2020-04-05 16:00] VITALS: BP 127/61
--- NOTE | 2020-04-05 17:49 | NUR ---
rn notes patient remains on room air, no sob noted, a/o x4 and is round the clock on pain medications consistently. R UA mid line present. Awaiting for results from pathology results, bone marrow. HOLD GRANIX for 3 days, starting 04/03/2020. Plan is to transfer patient to [facility] or [place] for liver services. bed at the lowest setting, call light within reach, side rails up x2.
[2020-04-05 20:00] VITALS: BP 121/74
[2020-04-05] MEDS: CEFTRIAXONE 1 G in IV D5W 50 ML IV SCH (20:05)
--- NOTE | 2020-04-05 21:00 | NUR ---
RN NOTES COMPLAINED OF GENERALIZED PAIN DILAUDID 1 MG IV GIVEN ORDERED, V/S STABLE
[2020-04-06] VITALS (7 sets, daily range): BP systolic 114–123; BP diastolic 49–79
[2020-04-06] MEDS: IV NS 0.9% 1,000 ML IV SCH
--- NOTE | 2020-04-06 01:00 | NUR ---
RN NOTES COMPLAINED OF GENERALIZED PAIN AND FEELING NAUSEOUS, DILAUDID 1MG IV GIVEN ORDERED, V/S STABLE, ZOFRAN 4 MG IV GIVEN FOR NAUSEA
[2020-04-06] MEDS: ONDANSETRON HCL/PF 4 MG/2 ML VIAL IV PRN ×2 (01:02→14:39)
[2020-04-06] MEDS: HYDROMORPHONE 1 MG/1 ML DISP.SYRIN IV PRN ×6 (01:02→22:58)
--- NOTE | 2020-04-06 05:30 | NUR ---
RN NOTES COMPLAINED OF GENERALIZED PAIN- DILAUDID 1MG IV GIVEN ORDERED, V/S STABLE
--- NOTE | 2020-04-06 06:45 | NUR ---
RN NOTES AWAKE, MORNING CARE RENDERED, CALL LIGHT WITHIN REACH [id number], PT. NEEDS ATTENDED
--- NOTE | 2020-04-06 07:45 | NUR ---
RN OPENING NOTE Patient is resting in bed, A/O x4, showing no signs of acute distress or SOB, stable on RA. TYLER Midline is clean and intact, flushing well. Patient is independent with care and BRP. Bed is in lowest position, side rails x3 in upright position, call light is within reach, fall safety precautions enforced, reverse isolation enforced per MD due to low platelet and low WBCs. Will continue with plan of care. Addendum: 04/06/20 at 1229 by SANDY HERNANDEZ RN Tele monitor SR 70s
[2020-04-06 08:01] LABS: BASOPHILS % (AUTO) 1.2 % (0.0-2.0); EOSINOPHILS % (AUTO) 3.4 % (0.0-6.0); HEMATOCRIT 29 % (33-45); HEMOGLOBIN 9.6 g/dL (11.5-14.8); LYMPHOCYTES # (AUTO) 0.5 /CMM (0.8-4.8); LYMPHOCYTES % (AUTO) 22.3 % (20.0-44.0); MEAN CORPUSCULAR HGB CONC 33 g/dl (31.0-36.0); MEAN CORPUSCULAR VOLUME 91 fL (82-100); MONOCYTES # (AUTO) 0.3 /CMM (0.1-1.30); MONOCYTES % (AUTO) 10.4 % (2.0-12.0); NEUTROPHILS # (AUTO) 1.5 /CMM (1.8-8.9); NEUTROPHILS % (AUTO) 62.7 % (43.0-81.0); WHITE BLOOD COUNT (AUTO) 2.4 K/uL (4.3-11.0)
[2020-04-06] MEDS: ASCORBIC ACID 500 MG TABLET PO SCH (08:13)
[2020-04-06] MEDS: LEVOTHYROXINE SODIUM 75 MCG TABLET PO SCH (08:13)
[2020-04-06] MEDS: LACTULOSE 10 G/15 ML UDC (PYXIS) PO SCH (08:13)
[2020-04-06] MEDS: GABAPENTIN 100 MG CAPSULE PO SCH ×2 (08:13→16:36)
[2020-04-06] MEDS: ACYCLOVIR 800 MG TABLET PO SCH ×2 (08:13→16:36)
[2020-04-06] MEDS: DOCUSATE SODIUM 100 MG CAPSULE PO SCH ×2 (08:13→16:36)
[2020-04-06] MEDS: PANTOPRAZOLE 40 MG VIAL IV SCH (08:13)
[2020-04-06] MEDS: FOLIC ACID 1 MG TABLET PO SCH (08:13)
[2020-04-06] MEDS: CHOLECALCIFEROL 1,000 UNIT TABLET (VIT D3) PO SCH (08:13)
[2020-04-06] MEDS: VITS A AND D/WHITE PET/LANOLIN 5 GM PACKET TP SCH ×2 (08:16→16:36)
[2020-04-06 08:27] LABS: CALCIUM, SERUM 7.7 mg/dL (8.5-10.1); CREATININE 0.9 mg/dL (0.6-1.3); MAGNESIUM 1.7 mg/dL (1.8-2.4); PHOSPHORUS 4.1 mg/dL (2.5-4.9); POTASSIUM 3.7 mmol/L (3.5-5.1)
[2020-04-06 08:41] LABS: PLATELET COUNT (AUTO) 44 /CMM (150-450)
[2020-04-06 08:56] LABS: D-DIMER 1.28 mg/L(FEU (0.17-0.50)
[2020-04-06 10:33] LABS: EOSINOPHILS % (MANUAL) 4 % (0-4); LYMPHOCYTES % (MANUAL) 17 % (16-48); MONOCYTES % (MANUAL) 9 % (0-11.0); NEUTROPHILS % (MANUAL) 70 (42-76)
[2020-04-06] MEDS: FUROSEMIDE 40 MG TABLET PO SCH (11:08)
[2020-04-06] MEDS: SPIRONOLACTONE 25 MG TABLET PO SCH (11:08)
[2020-04-06 12:13] LABS: THYROID STIMULATING HORMONE 5.788 uIU/mL (0.358-3.74)
[2020-04-06] MEDS: Magnesium 1GM/D5W 100ML PREMIX 100 ML IV SCH ×2 (14:09→15:26)
--- NOTE | 2020-04-06 16:37 | NUR ---
RN NOTE DC lactulose per Day N.P.
--- NOTE | 2020-04-06 19:04 | NUR ---
RN CLOSING NOTE Patient is resting in bed, A/O x4, showing no signs of acute distress or SOB, stable on RA. Tele monitor SR 70s. TYLER Midline is clean and intact, flushing well. Patient is independent with care and BRP. No diarrhea today. Bed is in lowest position, side rails x3 in upright position, call light is within reach, fall safety precautions enforced, reverse isolation enforced per MD due to low platelet and low WBCs. Around 184 Dr. Roy ordered 10units of cryprecipitate for fibrinogen of 139. Type and screen drawn by lab at 1845. Consent signed and placed in chart. Will endorse to night supervisor for MARTY.
[2020-04-06] MEDS ORDERED: ACETAMINOPHEN 325 MG TABLET PO ONE (19:30)
[2020-04-06] MEDS ORDERED: diphenhydrAMINE HCL 50 MG/ML VIAL IV ONE (19:30)
--- NOTE | 2020-04-06 19:30 | NUR ---
RN OPENING PM NOTE PT IN BED IN NO APPARENT DISTRESS. BREATHING EVEN AND UNLABORED. TYLER MIDLINE IS CLEAN INTAC FUSHED NO S/S OF INFILTRATION. PT AXO X4 REVIEWED PLAN FOR CRYOPRECIPATATE TRANSFUSION FOR FIBRINOGEN FOR 139. BLOOD CONESNT SIGNED ON 2019 AND VERIFIED. BED IN LOW LOCKED POSITION. REVERSE ISOLATION PRECAUTIONS IN PLACE. WILL CONT TO MONITOR.
--- NOTE | 2020-04-06 20:34 | NUR ---
BLOOD BANK WORKING ON PREPPING 10 UNIT SO CRYOPRECIPITATE. BLOOD BANK CALLED STILL STATE THEY ARE STILL WORKING ON PREPARATION. REQUESTED THAWING WHEN READY AND CALL BACK FOR REAL ESTATE OFFICE SUPERVISOR.
[2020-04-06] MEDS: CEFTRIAXONE 1 G in IV D5W 50 ML IV SCH (20:58)
[2020-04-07] VITALS (11 sets, daily range): BP systolic 107–129; BP diastolic 60–79
[2020-04-07] MEDS: HYDROMORPHONE 1 MG/1 ML DISP.SYRIN IV PRN ×5 (03:24→20:20)
[2020-04-07 06:42] LABS: BASOPHILS % (AUTO) 1.1 % (0.0-2.0); EOSINOPHILS % (AUTO) 3.1 % (0.0-6.0); HEMATOCRIT 29 % (33-45); HEMOGLOBIN 9.3 g/dL (11.5-14.8); LYMPHOCYTES # (AUTO) 0.5 /CMM (0.8-4.8); LYMPHOCYTES % (AUTO) 26.5 % (20.0-44.0); MEAN CORPUSCULAR HGB CONC 32 g/dl (31.0-36.0); MEAN CORPUSCULAR VOLUME 91 fL (82-100); MONOCYTES # (AUTO) 0.2 /CMM (0.1-1.30); MONOCYTES % (AUTO) 13.1 % (2.0-12.0); NEUTROPHILS # (AUTO) 1.1 /CMM (1.8-8.9); NEUTROPHILS % (AUTO) 56.2 % (43.0-81.0); RED BLOOD CELL COUNT(AUTO) 3.16 MIL/uL (4.0-5.2)
[2020-04-07 06:46] LABS: CALCIUM, SERUM 7.9 mg/dL (8.5-10.1); CREATININE 0.9 mg/dL (0.6-1.3); MAGNESIUM 1.6 mg/dL (1.8-2.4); POTASSIUM 3.5 mmol/L (3.5-5.1)
[2020-04-07 07:00] LABS: PLATELET COUNT (AUTO) 48 /CMM (150-450); WHITE BLOOD COUNT (AUTO) 1.9 K/uL (4.3-11.0)
[2020-04-07 07:09] LABS: D-DIMER 1.51 mg/L(FEU (0.17-0.50)
--- NOTE | 2020-04-07 07:45 | NUR ---
RN OPENING NOTE PT IN BED IN NO APPARENT DISTRESS. BREATHING EVEN AND UNLABORED. TYLER MIDLINE IS CLEAN INTAC FUSHED NO S/S OF INFILTRATION. PT AXO X4 REVIEWED PLAN FOR . BED IN LOW LOCKED POSITION. REVERSE ISOLATION PRECAUTIONS IN PLACE. WILL CONT TO MONITOR.
[2020-04-07 08:23] LABS: EOSINOPHILS % (MANUAL) 1 % (0-4); LYMPHOCYTES % (MANUAL) 28 % (16-48); MONOCYTES % (MANUAL) 15 % (0-11.0); NEUTROPHILS % (MANUAL) 56 (42-76)
[2020-04-07] MEDS: LEVOTHYROXINE SODIUM 75 MCG TABLET PO SCH (08:24)
[2020-04-07] MEDS: SPIRONOLACTONE 25 MG TABLET PO SCH (08:25)
[2020-04-07] MEDS: DOCUSATE SODIUM 100 MG CAPSULE PO SCH ×2 (08:26→16:18)
[2020-04-07] MEDS: FOLIC ACID 1 MG TABLET PO SCH (08:26)
[2020-04-07] MEDS: ASCORBIC ACID 500 MG TABLET PO SCH (08:28)
[2020-04-07] MEDS: CHOLECALCIFEROL 1,000 UNIT TABLET (VIT D3) PO SCH (08:28)
[2020-04-07] MEDS: GABAPENTIN 100 MG CAPSULE PO SCH ×2 (08:29→16:18)
[2020-04-07] MEDS: FUROSEMIDE 40 MG TABLET PO SCH (08:29)
[2020-04-07] MEDS: PANTOPRAZOLE 40 MG VIAL IV SCH (08:31)
[2020-04-07] MEDS: ACYCLOVIR 200 MG CAPSULE PO SCH ×2 (08:32→16:19)
[2020-04-07] MEDS: ONDANSETRON HCL/PF 4 MG/2 ML VIAL IV PRN ×2 (08:42→16:18)
[2020-04-07] MEDS ORDERED: ACYC200C PO (08:51)
[2020-04-07] MEDS ORDERED: SPIR25TA6 PO (08:51)
[2020-04-07] MEDS ORDERED: CEFT1VIA15 IV (08:51)
[2020-04-07] MEDS: VITS A AND D/WHITE PET/LANOLIN 5 GM PACKET TP SCH ×2 (09:00→16:24)
[2020-04-07] MEDS: Magnesium 1GM/D5W 100ML PREMIX 100 ML IV SCH ×2 (12:39→13:52)
--- NOTE | 2020-04-07 18:00 | NUR ---
MS/RN CLOSING NOTE PATIENT RESTING IN BED, A/O X4, NO SHOWING SIGN OF PAIN OR ACUTE DISTRESS AT THIS TIME MEDICATED WITH PAIN MEDS ORDER X 2 ,NO SOB, STABLE ON RA. TELE MONITORING D/C. TYLER MIDLINE IS CLEAN INTACT,FLUSHING WELL . PT IS INDEPENDENT WITH CARE BRP. NO BM TODAY.BED IN LOW POSITION SIDE RAILS X2 CALL LIGHT WITHIN REACH,FALL SAFETY PRECAUTIONS PLACE ,REVERSE ISOLATION ENFORCE PER MD ORDER DUE TO LOW PLATELET AND LOW WBC.WILL CONTINUE TO MONITOR FOR COMFORT AND SAFETY
--- NOTE | 2020-04-07 19:50 | NUR ---
RN NOTES RECEIVED PATIENT RESTING IN BED, ALERT / ORIENTED X4, NO SIGNS OF PAIN OR ACUTE DISTRESS AT THIS TIME, DENIES PAIN AT THIS TIME,NO SOB, STABLE ON ROOM AIR. IV ACCESS INTACT AND PATENT, TYLER MIDLINE,FLUSHING WELL . PATIENT IS INDEPENDENT WITH CARE BRP. SAFETY MEASURES IN PLACE, BED IN LOW POSITION SIDE RAILS X2 CALL LIGHT WITHIN EASY REACH,FALL SAFETY PRECAUTIONS PLACE, ON REVERSE ISOLATION ENFORCE PER MD ORDER DUE TO LOW PLATELET AND LOW WBC.ALL NEEDS ANTICIPATED. WILL CONTINUE TO MONITOR ACCORDINGLY.
[2020-04-07] MEDS: CEFTRIAXONE 1 G in IV D5W 50 ML IV SCH (20:12)
[2020-04-07] MEDS ORDERED: TBO-FILGRASTIM 480 MCG/0.8 ML ML SQ SCH (22:00)
[2020-04-08] MEDS: HYDROMORPHONE 1 MG/1 ML DISP.SYRIN IV PRN ×5 (00:21→16:54)
--- NOTE | 2020-04-08 06:13 | NUR ---
RN NOTES ALL NEEDS ATTENDED AND MET. ABLE TO REST AND SLEPT AT INTERVALS. ALL NEEDS ANTICIPATED. PATIENT RESTING IN BED, ALERT / ORIENTED X4, NO SIGNS OF PAIN OR ACUTE DISTRESS AT THIS TIME, DENIES PAIN AT THIS TIME,NO SOB, STABLE ON ROOM AIR. IV ACCESS INTACT AND PATENT, TYLER MIDLINE,FLUSHING WELL . PATIENT IS INDEPENDENT WITH CARE BRP. SAFETY MEASURES IN PLACE, BED IN LOW POSITION SIDE RAILS X2 CALL LIGHT WITHIN EASY REACH,FALL SAFETY PRECAUTIONS PLACE, ON REVERSE ISOLATION ENFORCE PER MD ORDER DUE TO LOW PLATELET AND LOW WBC. AM LABS DONE. WILL ENDORSE TO AM NURSE FOLLOW UP RESULTS. POSSIBLE DISCHARGE TODAY. WILL ENDORSE TO AM NURSE.
[2020-04-08 06:25] LABS: BASOPHILS % (AUTO) 1.2 % (0.0-2.0); EOSINOPHILS % (AUTO) 2.3 % (0.0-6.0); HEMATOCRIT 28 % (33-45); LYMPHOCYTES # (AUTO) 0.4 /CMM (0.8-4.8); LYMPHOCYTES % (AUTO) 24.9 % (20.0-44.0); MEAN CORPUSCULAR HGB CONC 33 g/dl (31.0-36.0); MEAN CORPUSCULAR VOLUME 91 fL (82-100); MONOCYTES # (AUTO) 0.3 /CMM (0.1-1.30); MONOCYTES % (AUTO) 17.3 % (2.0-12.0); NEUTROPHILS # (AUTO) 0.9 /CMM (1.8-8.9); NEUTROPHILS % (AUTO) 54.3 % (43.0-81.0); RED BLOOD CELL COUNT(AUTO) 3.03 MIL/uL (4.0-5.2)
[2020-04-08 06:34] LABS: PLATELET COUNT (AUTO) 49 /CMM (150-450); WHITE BLOOD COUNT (AUTO) 1.6 K/uL (4.3-11.0)
[2020-04-08 06:49] LABS: CALCIUM, SERUM 7.7 mg/dL (8.5-10.1); CREATININE 0.9 mg/dL (0.6-1.3); MAGNESIUM 1.7 mg/dL (1.8-2.4); PHOSPHORUS 3.6 mg/dL (2.5-4.9); POTASSIUM 3.8 mmol/L (3.5-5.1)
--- NOTE | 2020-04-08 06:58 | NUR ---
RN NOTES RECEIVED LAB RESULT WBC 1.6 AND PLATELET 49. CALL AND INFORMED MD. AWAITING FOR NEW ORDER. WILL ENDORSE TO AM NURSE TO FOLLOW UP.
[2020-04-08 07:04] LABS: BAND % (MANUAL) 4 % (0.0-5.0); EOSINOPHILS % (MANUAL) 3 % (0-4); LYMPHOCYTES % (MANUAL) 26 % (16-48); METAMYELOCYTES % 1 % (0-0); MONOCYTES % (MANUAL) 14 % (0-11.0); NEUTROPHILS % (MANUAL) 52 (42-76)
[2020-04-08 08:00] VITALS: BP 123/62
--- NOTE | 2020-04-08 08:00 | NUR ---
RN OPENING NOTE RECEIVED PT IN BED AWAKE A;LERT AND ORIENTED X4. NO CARDIAC OR RESP DISTRESS NOTED. NO SOB NOTED. SATURATING WELL ON ROOM AIR. BREATHING EVEN AND UNLABORED. IV ACCESS NOTED ON TYLER MIDLINE INTACT AND PATENT AND FLUSHING WELL. NO S/S OF INFECTION OR INFILTRATION NOTED. SAFETY PRECAUTIONS IN PLACE. BED IN LOW LOCKED POSITION. SIDE RAILS UP X2. REVERSE ISOLATION PRECAUTIONS IN PLACE. WILL CONT TO MONITOR.
[2020-04-08] MEDS: ASCORBIC ACID 500 MG TABLET PO SCH (08:45)
[2020-04-08] MEDS: FUROSEMIDE 40 MG TABLET PO SCH (08:45)
[2020-04-08] MEDS: GABAPENTIN 100 MG CAPSULE PO SCH ×2 (08:45→16:54)
[2020-04-08] MEDS: CHOLECALCIFEROL 1,000 UNIT TABLET (VIT D3) PO SCH (08:45)
[2020-04-08] MEDS: DOCUSATE SODIUM 100 MG CAPSULE PO SCH ×2 (08:45→16:54)
[2020-04-08] MEDS: PANTOPRAZOLE 40 MG VIAL IV SCH (08:45)
[2020-04-08] MEDS: FOLIC ACID 1 MG TABLET PO SCH (08:45)
[2020-04-08] MEDS: SPIRONOLACTONE 25 MG TABLET PO SCH (08:46)
[2020-04-08] MEDS: ACYCLOVIR 200 MG CAPSULE PO SCH ×2 (08:47→16:54)
[2020-04-08] MEDS: VITS A AND D/WHITE PET/LANOLIN 5 GM PACKET TP SCH ×2 (08:47→16:54)
[2020-04-08] MEDS: LEVOTHYROXINE SODIUM 75 MCG TABLET PO SCH (08:48)
[2020-04-08] MEDS: ONDANSETRON HCL/PF 4 MG/2 ML VIAL IV PRN (08:55)
--- NOTE | 2020-04-08 10:30 | NUR ---
ABN LABS DR HOUSE NOTIFIED REGARDING WBC 1.6 AND PLATELET 49. NNO GIVEN.
[2020-04-08] MEDS: Magnesium 1GM/D5W 100ML PREMIX 100 ML IV SCH ×2 (11:53→13:28)
[2020-04-08] MEDS ORDERED: TBO-FILGRASTIM 480 MCG/0.8 ML ML SQ SCH (15:00)
[2020-04-08 16:00] VITALS: BP 123/71
[2020-04-08] MEDS ORDERED: CEFTRIAXONE 1 G in IV D5W 50 ML IV SCH (16:00)
--- NOTE | 2020-04-08 16:30 | NUR ---
INVENTORY INVENTORY WAS DONE WITH THE PT. PT ACKNOWLEDGED THAT SHE ALREADY HAS ALL HER BELONGINGS. INVENTORIED ALL BELONGINGS WITH THE PT. I ALSO GAVE HER THE MONEY THAT WAS SAFE-KEPT WITH THE SALES ASSISTANTS AND SALESPERSONS. PT SIGNED INVENTORY LIST. ALL VALUABLES ARE WITH THE PT.
--- NOTE | 2020-04-08 17:00 | NUR ---
REFUSED BODY CHECK PT REFUSED BODY CHECK. REFUSED FOR PICTURES TO BE TAKEN. ACCORDING TO HER, SHE DOES NOT HAVE ANY SKIN PROBLEMS.
--- NOTE | 2020-04-08 17:30 | NUR ---
HOMEHEALTH INFO RECEIVED HOMEHEALTH INFO FROM [facility]. PROVIDED PT WITH NAME OF HOMEHEALTH [facility] PHONE NUMBER [facility]- [phone]
--- NOTE | 2020-04-08 18:15 | NUR ---
D/C HOME WITH HOMEHEALTH PT DISCHARGED HOME IN STABLE CONDITION. AWAKE ALERT AND ORIENTED X4. NO CARDIAC OR RESP DISTRESS NOTED. NO SOB NOTED. SATURATING WELL ON ROOM AIR. BREATHING EVEN AND UNLABORED. NO COMPLAINTS OF PAIN OR DISCOMFORT. PT IS AFEBRILE. ALL D/C INSTRUCTIONS PROVIDED TO THE PT. REVIEWED ALL MEDS WITH THE PT WELL HOW TO TAKE IT. INSTRUCTED PT TO MAKE A FOLLOW UP APPT WITH HER PROGRAM ADMIN AND PCP WITHIN 1WEEK OR SOON POSSIBLE. PT AGREED. PT WILL BE CONTINUING IV ATB, IV ACCESS NOTED ON TYLER MIDLINE INTACT AND PATENT AND FLUSHING WELL. NO S/S OF INFECTION OR INFILTRATION NOTED. WILL KEEP IV ACCESS FOR IV INFUSION AT HOME BY HOME HEALTH NURSE. PT WAS ALSO PROVIDED WITH THE HOME HEALTH INFO WELL PHONE NUMBER. PER PT SHE WILL BE TAKING UBER TO GO HOME. PT IS AOX4 AND IS CAPABLE OF MAKING DECISIONS FOR HERSELF. PT WAS ESCORTED TOP THE LOBBY UNTIL SHE WAS PICKED UP BY HER UBER. ALL D/C PAPERWORK PROVIDED, WELL CDS AND PROGRESS NOTES AND IMAGING AND LAB RESULTS FROM THE DATE OF HER ADMISSION PER HER REQUEST. PT WAS VERY THANKFUL OF ALL THE SERVICES PROVIDED TO HER BY THE FACILITY. PT LEFT IN STABLE CONDITION.
== END 2020-04-08 18:15 | disposition home health service (06) | DRG 720 ==
LOC: ER 15:16 → MEDSG2 20:19 → TELE 04-02 21:24 → MED 04-07 09:48
PROVIDERS: ATTEND Nurse Practitioner Acute Care
PROC: 05HB33Z Insertion of Infusion Device into Right Basilic Vein, Percutaneous Approach (ICD-10-PCS; principal; 2020-03-25)
PROC: 30233R1 Transfusion of Nonautologous Platelets into Peripheral Vein, Percutaneous Approach (ICD-10-PCS; 2020-03-28)
PROC: 07DR3ZX Extraction of Iliac Bone Marrow, Percutaneous Approach, Diagnostic (ICD-10-PCS; 2020-03-29)
PROC: 05HD33Z Insertion of Infusion Device into Right Cephalic Vein, Percutaneous Approach (ICD-10-PCS; 2020-04-02)
PROC: 05HY33Z Insertion of Infusion Device into Upper Vein, Percutaneous Approach (ICD-10-PCS; 2020-04-02)
PROC: 05HD33Z Insertion of Infusion Device into Right Cephalic Vein, Percutaneous Approach (ICD-10-PCS; 2020-04-03)
PROC: 30233M1 Transfusion of Nonautologous Plasma Cryoprecipitate into Peripheral Vein, Percutaneous Approach (ICD-10-PCS; 2020-04-06)
DX: A41.50 Gram-negative sepsis, unspecified (principal); G93.41 Metabolic encephalopathy; D61.818 Other pancytopenia; L03.115 Cellulitis of right lower limb; E87.1 Hypo-osmolality and hyponatremia; K72.90 Hepatic failure, unspecified without coma; K74.60 Unspecified cirrhosis of liver; I11.0 Hypertensive heart disease with heart failure; I50.9 Heart failure, unspecified; Z88.8 Allergy status to other drugs, medicaments and biological substances; Z91.040 Latex allergy status; I42.8 Other cardiomyopathies; Z79.899 Other long term (current) drug therapy; O90.3 Peripartum cardiomyopathy; B19.20 Unspecified viral hepatitis C without hepatic coma; E66.01 Morbid (severe) obesity due to excess calories; E80.6 Other disorders of bilirubin metabolism; E03.9 Hypothyroidism, unspecified; D73.1 Hypersplenism; D64.9 Anemia, unspecified; K76.6 Portal hypertension; I87.2 Venous insufficiency (chronic) (peripheral); D50.9 Iron deficiency anemia, unspecified; D69.6 Thrombocytopenia, unspecified; Z68.42 Body mass index [BMI] 45.0-49.9, adult; G89.29 Other chronic pain; Z79.891 Long term (current) use of opiate analgesic; T14.8XXA Other injury of unspecified body region, initial encounter; X58.XXXA Exposure to other specified factors, initial encounter
CPT/HCPCS: 36410; 36415; 71045-TC; 80048-TC; 80053-TC; 80076-TC; 80202-TC; 81000-TC; 82105; 82140-TC; 82248-TC; 82272-TC; 82728-TC; 83540-TC; 83605-TC; 83615-TC; 83690-TC; 83735-TC; 83880; 84100-TC; 84443-TC; 84484-TC; 84703-TC; 85025-TC; 85045-TC; 85396; 85610-TC; 85730-TC; 86140-TC; 86225; 86235; 86431-TC; 86706; 86803; 86850-TC; 87040-TC; 87081-TC; 87086-TC; 87186-TC; 87340; 93307-TC; 93971-TC; 93979-TC; A4216; A6403; C9113; G0378; J0692; J0696; J1170; J1200; J1447; J1940; J2185; J2270; J2405; J2916; J3370; J3430; J3475; J3490; J7030; J7040; J7050; J7060; P9012; P9016-BL; P9034-BL; Q0163; U0003-CS

== ENCOUNTER 2020-04-23 18:36 | Emergency (ER) | payer OTHER ==
[~2020-04-23] VITALS: Ht 175.3 cm; Wt 111.1 kg
[~2020-04-23 18:36] MED LIST: ACYC200C PO; ASCO-352 PO; CEFT1VIA15 IV; CHOL100040 PO; FURO-145 PO; LEVO150T8 PO; OXYC-454 PO; SPIR25TA6 PO
--- NOTE | 2020-04-23 18:45 | NUR ---
A/Ox4, c/o bilateral flanks pain and on and off blood in stool.
--- NOTE | 2020-04-23 19:21 | NUR ---
Patient tried to colloect stool for specimen but not enough at this time, endorsed to next shift.
[2020-04-23 19:37] LABS: BASOPHILS % (AUTO) 0.8 % (0.0-2.0); EOSINOPHILS % (AUTO) 4.1 % (0.0-6.0); HEMATOCRIT 36 % (33-45); HEMOGLOBIN 11.8 g/dL (11.5-14.8); LYMPHOCYTES # (AUTO) 0.6 /CMM (0.8-4.8); LYMPHOCYTES % (AUTO) 19.6 % (20.0-44.0); MEAN CORPUSCULAR HGB CONC 33 g/dl (31.0-36.0); MEAN CORPUSCULAR VOLUME 92 fL (82-100); MONOCYTES # (AUTO) 0.3 /CMM (0.1-1.30); MONOCYTES % (AUTO) 10.6 % (2.0-12.0); NEUTROPHILS # (AUTO) 1.9 /CMM (1.8-8.9); NEUTROPHILS % (AUTO) 64.9 % (43.0-81.0); RED BLOOD CELL COUNT(AUTO) 3.91 MIL/uL (4.0-5.2); WHITE BLOOD COUNT (AUTO) 2.9 K/uL (4.3-11.0)
[2020-04-23 19:39] LABS: PLATELET COUNT (AUTO) 44 /CMM (150-450)
[2020-04-23 19:57] LABS: CALCIUM, SERUM 8.5 mg/dL (8.5-10.1); CREATININE 0.8 mg/dL (0.6-1.3); POTASSIUM 4.1 mmol/L (3.5-5.1)
[2020-04-23 20:03] LABS: ALBUMIN 3.1 g/dL (3.4-5.0); BILIRUBIN,DIRECT 0.3 mg/dL (0.0-0.2); BILIRUBIN,TOTAL 0.9 mg/dL (0.2-1.0); TOTAL PROTEIN, SERUM 7.5 g/dL (6.4-8.2)
[2020-04-23 20:57] LABS: BAND % (MANUAL) 3 % (0.0-5.0); EOSINOPHILS % (MANUAL) 5 % (0-4); LYMPHOCYTES % (MANUAL) 18 % (16-48); MONOCYTES % (MANUAL) 8 % (0-11.0); NEUTROPHILS % (MANUAL) 66 (42-76)
[2020-04-23 21:00] LABS: OCCULT BLOOD STOOL NEGATIVE (NEGATIVE)
[2020-04-23] MEDS ORDERED: ONDANSETRON 4 MG TAB.RAPDIS ONE (22:08)
[2020-04-23] MEDS ORDERED: HYDROCODONE/APAP 5/325MG 1 EACH TABLET ONE (22:08)
--- NOTE | 2020-04-23 22:16 | NUR ---
pt is medically stable for d/c. IV removed. Catheter intact and site benign. Pressure and 4x4 applied to site. No bleeding noted.Patient discharged to home in stable condition. Rx and Written and verbal after care instructions given. Patient verbalizes understanding of instruction.
[2020-04-23 22:18] VITALS: BP 119/85
[2020-04-23] MEDS ORDERED: HYDROCODONE/APAP 5/325MG 1 EACH TABLET PO ONE (22:30)
[2020-04-23] MEDS ORDERED: ONDANSETRON 4 MG TAB.RAPDIS SL ONE (22:30)
== END 2020-04-23 22:18 | disposition home or self-care (01) ==
LOC: ER 18:39
DX: K92.1 Melena (principal); I25.10 Atherosclerotic heart disease of native coronary artery without angina pectoris; E03.9 Hypothyroidism, unspecified; E66.8 Other obesity; I25.2 Old myocardial infarction; I50.9 Heart failure, unspecified; Z68.36 Body mass index [BMI] 36.0-36.9, adult; Z86.19 Personal history of other infectious and parasitic diseases; Z98.890 Other specified postprocedural states; Z88.8 Allergy status to other drugs, medicaments and biological substances; Z88.6 Allergy status to analgesic agent; Z91.040 Latex allergy status; Z79.899 Other long term (current) drug therapy
CPT/HCPCS: 36415; 80048; 80076; 82272; 83690; 85025; 85730; 87045; 87493; 89055; 99285; Q0162

== ENCOUNTER 2020-05-19 20:45 | Emergency (ER) | payer OTHER ==
[~2020-05-19] VITALS: Ht 177.8 cm; Wt 90.7 kg
[~2020-05-19 20:45] MED LIST changes: -OXYC-454 PO; +OXYC1TAB12 PO
--- NOTE | 2020-05-19 21:09 | NUR ---
PT AAOX4. BIBSELF C/O BILATERAL LEG PAIN AND SWELLING X3 DAYS WORSE ON L SIDE. PLACED ON MONITOR AND PULSE OX. VSS. NO ACUTE DISTRESS NOTED. PA AT BEDSIDE FOR EVAL.
[2020-05-19] MEDS ORDERED: ONDANSETRON HCL/PF 4 MG/2 ML VIAL ONE (21:54)
[2020-05-19] MEDS ORDERED: MORPHINE SULFATE INJ 4 MG/ML DISP.SYRIN ONE ×3 (21:55→23:50)
[2020-05-19] MEDS ORDERED: ONDANSETRON HCL/PF 4 MG/2 ML VIAL IVP ONE (22:00)
[2020-05-19] MEDS ORDERED: MORPHINE SULFATE INJ 2 MG/ML DISP.SYRIN IV ONE ×2 (22:00→23:30)
[2020-05-19 22:12] LABS: HEMATOCRIT 34 % (33-45); HEMOGLOBIN 11.2 g/dL (11.5-14.8); LYMPHOCYTES # (AUTO) 0.5 /CMM (0.8-4.8); LYMPHOCYTES % (AUTO) 37.6 % (20.0-44.0); MEAN CORPUSCULAR HGB CONC 33 g/dl (31.0-36.0); MEAN CORPUSCULAR VOLUME 90 fL (82-100); MONOCYTES # (AUTO) 0.2 /CMM (0.1-1.30); MONOCYTES % (AUTO) 16.1 % (2.0-12.0); NEUTROPHILS # (AUTO) 0.5 /CMM (1.8-8.9); NEUTROPHILS % (AUTO) 42.3 % (43.0-81.0); RED BLOOD CELL COUNT(AUTO) 3.79 MIL/uL (4.0-5.2)
[2020-05-19 22:20] LABS: ALBUMIN 3.2 g/dL (3.4-5.0); BILIRUBIN,DIRECT 0.3 mg/dL (0.0-0.2); BILIRUBIN,TOTAL 1.1 mg/dL (0.2-1.0); CALCIUM, SERUM 8.6 mg/dL (8.5-10.1); CREATININE 1.1 mg/dL (0.6-1.3); PLATELET COUNT (AUTO) 38 /CMM (150-450); POTASSIUM 3.4 mmol/L (3.5-5.1); TOTAL PROTEIN, SERUM 7.4 g/dL (6.4-8.2); WHITE BLOOD COUNT (AUTO) 1.2 K/uL (4.3-11.0)
--- NOTE | 2020-05-19 22:23 | NUR ---
AMBULATED TO RESTROOM TO PROVIDE URINE SAMPLE
--- NOTE | 2020-05-19 22:30 | NUR ---
US AT BEDSIDE
[2020-05-19 23:11] LABS: EOSINOPHILS % (MANUAL) 3 % (0-4); LYMPHOCYTES % (MANUAL) 36 % (16-48); MONOCYTES % (MANUAL) 17 % (0-11.0); NEUTROPHILS % (MANUAL) 44 (42-76)
--- NOTE | 2020-05-19 23:38 | NUR ---
CALLED LAB AGAIN REGARDING URINE SAMPLE
--- NOTE | 2020-05-19 23:56 | NUR ---
IV removed. Catheter intact and site benign. Pressure and 4x4 applied to site. No bleeding noted. Patient discharged to home in stable condition. Written and verbal after care instructions given. Patient verbalizes understanding of instruction. Pt ambulated with steady gait. vss.
[2020-05-19 23:57] VITALS: BP 129/71
[2020-05-20] MEDS ORDERED: MORPHINE SULFATE INJ 2 MG/ML DISP.SYRIN IV ONE
== END 2020-05-19 23:57 | disposition home or self-care (01) ==
LOC: ER 20:59
DX: R60.0 Localized edema (principal); D61.818 Other pancytopenia; I25.2 Old myocardial infarction; I50.9 Heart failure, unspecified; F17.200 Nicotine dependence, unspecified, uncomplicated; Z86.19 Personal history of other infectious and parasitic diseases; Z88.8 Allergy status to other drugs, medicaments and biological substances; Z88.6 Allergy status to analgesic agent; Z91.040 Latex allergy status; Z60.2 Problems related to living alone; Z79.899 Other long term (current) drug therapy
CPT/HCPCS: 36415; 80048; 80076; 83880; 85025; 93970; 96374; 96375; 96376; 99284; J2270 ×3; J2405

== ENCOUNTER 2020-06-21 02:28 | Emergency (ER) | payer OTHER ==
[~2020-06-21] VITALS: Ht 177.8 cm; Wt 104.3 kg
--- NOTE | 2020-06-21 02:58 | NUR ---
PT AAOX4. BIBS FOR C/O LOWER ABD PAIN, DISTENDED ABD & N/V X 2 WKS. UPON ASSESSMENT PT NOT VOMITING. PER PT SHE HAD TEMP OF 103 YESTERDAY AND HAS BEEN TAKING ADVIL Q6HR. NO ACUTE DISTRESS NOTED. AWAITING FOR MD FOR EVAL.
[2020-06-21] MEDS ORDERED: IV NS 0.9% 1,000 ML BAG IV ONE (03:00)
[2020-06-21] MEDS ORDERED: ONDANSETRON HCL/PF 4 MG/2 ML VIAL ONE (03:00)
[2020-06-21] MEDS ORDERED: ONDANSETRON HCL/PF 4 MG/2 ML VIAL IVP ONE (03:00)
[2020-06-21] MEDS ORDERED: MORPHINE SULFATE INJ 2 MG/ML DISP.SYRIN IV ONE (03:00)
[2020-06-21] MEDS ORDERED: MORPHINE SULFATE INJ 4 MG/ML DISP.SYRIN ONE (03:00)
--- NOTE | 2020-06-21 03:03 | NUR ---
AT BEDSIDE FOR EVAL.
--- NOTE | 2020-06-21 03:03 | NUR ---
[employer] AT BEDSIDE FOR EVAL.
[2020-06-21 03:41] LABS: BASOPHILS % (AUTO) 0.9 % (0.0-2.0); EOSINOPHILS % (AUTO) 3.5 % (0.0-6.0); HEMATOCRIT 36 % (33-45); LYMPHOCYTES # (AUTO) 0.9 /CMM (0.8-4.8); LYMPHOCYTES % (AUTO) 25.7 % (20.0-44.0); MEAN CORPUSCULAR HGB CONC 33 g/dl (31.0-36.0); MEAN CORPUSCULAR VOLUME 88 fL (82-100); MONOCYTES # (AUTO) 0.3 /CMM (0.1-1.30); NEUTROPHILS # (AUTO) 2.1 /CMM (1.8-8.9); NEUTROPHILS % (AUTO) 60.9 % (43.0-81.0); RED BLOOD CELL COUNT(AUTO) 4.11 MIL/uL (4.0-5.2); WHITE BLOOD COUNT (AUTO) 3.5 K/uL (4.3-11.0)
[2020-06-21 03:42] LABS: PLATELET COUNT (AUTO) 45 /CMM (150-450)
--- NOTE | 2020-06-21 03:45 | NUR ---
US AT BEDSIDE
[2020-06-21 03:55] LABS: ALBUMIN 3.1 g/dL (3.4-5.0); BILIRUBIN,DIRECT 0.3 mg/dL (0.0-0.2); BILIRUBIN,TOTAL 0.7 mg/dL (0.2-1.0); CREATININE 0.7 mg/dL (0.6-1.3); POTASSIUM 3.4 mmol/L (3.5-5.1); TOTAL PROTEIN, SERUM 7.5 g/dL (6.4-8.2)
--- NOTE | 2020-06-21 04:02 | NUR ---
[facility] UNABLE TO PROVIDE URINE AT THIS TIME. MADE AWARE
[2020-06-21 04:20] LABS: EOSINOPHILS % (MANUAL) 5 % (0-4); LYMPHOCYTES % (MANUAL) 30 % (16-48); NEUTROPHILS % (MANUAL) 60 (42-76)
--- NOTE | 2020-06-21 04:20 | NUR ---
CALLED RADIOLOGY FOR CT. NO RESPONSE
[2020-06-21 04:21] LABS: MONOCYTES % (MANUAL) 5 % (0-11.0)
--- NOTE | 2020-06-21 04:30 | NUR ---
CALLED RADIOLOGY FOR CT
--- NOTE | 2020-06-21 04:45 | NUR ---
PT TAKEN TO CT
--- NOTE | 2020-06-21 05:00 | NUR ---
PT BACK FROM CT
[2020-06-21 05:55] LABS: APPEARANCE,URINE CLEAR (CLEAR); BILIRUBIN,URINE NEGATIVE (NEGATIVE); BLOOD, URINE SMALL Ery/uL (NEGATIVE); COLOR,URINE YELLOW (YELLOW); KETONES,URINE NEGATIVE (NEGATIVE); LEUKOCYTE ESTERASE ,URINE MODERATE (NEGATIVE); NITRITE, URINE NEGATIVE (NEGATIVE); PH,URINE 6.5 (5.0-8.0); PROTEIN,URINE NEGATIVE (NEGATIVE); UGLUCOSE NEGATIVE (NEGATIVE); UROBILINOGEN,URINE 0.2 EU/dL (0.2)
[2020-06-21 06:42] VITALS: BP 134/81
== END 2020-06-21 06:42 | disposition home or self-care (01) ==
LOC: ER 02:33
DX: N39.0 Urinary tract infection, site not specified (principal); D69.6 Thrombocytopenia, unspecified; R11.2 Nausea with vomiting, unspecified; I25.2 Old myocardial infarction; I50.9 Heart failure, unspecified; F17.200 Nicotine dependence, unspecified, uncomplicated; E66.01 Morbid (severe) obesity due to excess calories; Z68.33 Body mass index [BMI] 33.0-33.9, adult; Z88.8 Allergy status to other drugs, medicaments and biological substances; Z88.6 Allergy status to analgesic agent; Z91.040 Latex allergy status; Z79.899 Other long term (current) drug therapy
CPT/HCPCS: 36415; 74176; 76856; 80048; 80076; 80305; 81001; 83690; 84703; 85025; 85730; 96361; 96374; 99285; J2405; J7030; 81000-TC; J2270